=== PATIENT | female | born 1950 | race Caucasian/White ===

== ENCOUNTER 2024-02-23 11:13 | Day surgery (SDC) | payer MEDICARE ==
[2024-02-23] MEDS ORDERED: Sodium Chloride 0.9(Preservative Free) 10 ML IJ ONE (11:14)
[2024-02-23] MEDS ORDERED: Decadron 4 MG INJ IV ONE (11:14)
[2024-02-23] MEDS ORDERED: DIPRIVAN 200 MG/20 ML IV ONE (12:47)
[2024-02-23] MEDS ORDERED: Lactated Ringers 1,000 ML IV ONE (12:52)
--- NOTE | 2024-02-23 14:49 | XRAY ---
Indication: Left L4-S1 transforaminal NKECHI. Intraoperative fluoroscopy was provided for 49 seconds. 5 digital spot image submitted for interpretation demonstrates posterior needle tips projecting over the expected left L4 and L5 nerve roots. Small amount of contrast injected for needle tip placement. Correlate with intraoperative findings/report.
--- NOTE | 2024-02-23 15:13 | XRAY ---
49 seconds of fluoroscopy was used in surgery for a left L4-S1 transforaminal NKECHI.
== END 2024-02-23 13:30 | disposition home or self-care (01) ==
LOC: SDC-PAIN 11:13
PROVIDERS: ATTEND Psychiatry & Neurology Pain Medicine
DX: M54.16 Radiculopathy, lumbar region (principal); E11.9 Type 2 diabetes mellitus without complications
CPT/HCPCS: 64483; 64484; 72100; 77003; 82947; J1100; J2704; Q9966

== ENCOUNTER 2024-05-03 09:18 | Day surgery (SDC) | payer MEDICARE ==
[2024-05-03] MEDS ORDERED: Decadron 4 MG INJ IV ONE (09:19)
[2024-05-03] MEDS ORDERED: Sodium Chloride 0.9(Preservative Free) 10 ML IJ ONE (09:19)
[2024-05-03] MEDS ORDERED: DIPRIVAN 200 MG/20 ML IV ONE (11:13)
[2024-05-03] MEDS ORDERED: MORPHINE SULFATE 2 MG INJ ONE (11:42)
--- NOTE | 2024-05-03 12:21 | XRAY ---
Indication: Left L4-S1 transforaminal NKECHI. Intraoperative fluoroscopy provided for 50 seconds. 7 digital spot image submitted for interpretation demonstrates posterior needle tips projecting over the expected left L4 and L5 nerve roots. Small amount of contrast injected for needle tip placement. Correlate with intraoperative findings/report.
--- NOTE | 2024-05-03 12:35 | XRAY ---
50 seconds of fluoroscopy was used in surgery for a left L4-S1 transforaminal NKECHI.
== END 2024-05-03 12:15 | disposition home or self-care (01) ==
LOC: SDC-PAIN 09:18
PROVIDERS: ATTEND Psychiatry & Neurology Pain Medicine
DX: M54.16 Radiculopathy, lumbar region (principal); E11.9 Type 2 diabetes mellitus without complications
CPT/HCPCS: 64483; 64484; 72100; 77003; 82947; J1100; J2270; J2704; Q9966

== ENCOUNTER 2024-06-26 18:46 | Emergency (ER) | payer MEDICARE ==
--- NOTE | 2024-06-26 18:58 | ERPHSYRPT ---
- History of Present Illness Time Seen by Provider: 06/26/24 18:58 Source: patient, family Exam Limitations: no limitations Physician History: This is a 74-year-old white female patient who arrives to the emergency department by private vehicle and is a patient of Dr. Piper. She stated that she has chest heaviness and shortness of breath today. Patient has a history of atrial fibrillation in the past but has had an ablation last year which is helped control her arrhythmia. Patient is very anxious and tearful upon arrival to the emergency department. Patient does see a pain specialist, Dr. Huertas. Patient has a history of hypertension, diabetes, osteoarthritis and fibromyalgia. Her room air oxygen saturation level is 98%. Timing/Duration: today Severity of Dyspnea-Max: mild Severity of Dyspnea-Current: mild Possible Cause: occasional episodes Modifying Factors: Improves With: nothing Associated Symptoms: chest pain/discomfort (Describes it as central and nonradiating heaviness), heaviness, No weakness, No dizziness Allergies/Adverse Reactions: alprazolam [From Xanax] Allergy (Verified 06/26/24 18:49) meperidine [From Demerol] Allergy (Verified 06/26/24 18:49) Rash shellfish derived Allergy (Verified 06/26/24 18:49) Difficulty Breathing Travel Risk - International Travel Have you traveled outside of the country in past 3 weeks: No - Emerging Infectious Disease Are you exhibiting symptoms associated with any current EIDs: No - Review of Systems Constitutional: No Symptoms Eyes: No Symptoms Ears, Nose, & Throat: No Symptoms Respiratory: Dyspnea Cardiac: No Symptoms Abdominal/Gastrointestinal: No Symptoms Genitourinary Symptoms: No Symptoms Musculoskeletal: No Symptoms Skin: No Symptoms Neurological: No Symptoms Psychological: No Symptoms Endocrine: No Symptoms Hematologic/Lymphatic: No Symptoms Immunological/Allergic: No Symptoms All Other Systems: Reviewed and Negative - Past Medical History Pertinent Past Medical History: Yes Neurological History: No Pertinent History Cardiac History: Arrhythmia, Hypertension Respiratory History: No Pertinent History Endocrine Medical History: Diabetes Type II, Other Musculoskeletal History: Fibromyalgia, Osteoarthritis Other Medical History: PMHX: RIGHT BREAST CA WITH MASTECTOMY (NO CHEMO/RADIATION OR RECONSTRUCTION) 1991, A-FIB WITH ABLATION LAST YEAR WHICH HELPED. HX BILATERAL TOTAL KNEE REPLACEMENTS - LEFT 2 YEARS AGO, RIGHT 4-5 YEARS AGO. HX OF RIGHT ROTATOR CUFF TEAR - STATES WANTS TO DO SURGERY "BUT NOT READY FOR THAT". - Nursing Vital Signs Nursing Vital Signs: Initial Vital Signs Pulse Rate 73 06/26/24 18:49 Respiratory Rate 23 06/26/24 18:49 Blood Pressure 193/78 06/26/24 18:49 O2 Sat by Pulse Oximetry 96 06/26/24 18:49 Pain Scale Pain Intensity 0 - Physical Exam General Appearance: no apparent distress, alert, anxiety Eye Exam: PERRL/EOMI, eyes nml inspection Ears, Nose, Throat Exam: hearing grossly normal, normal ENT inspection, normal pharynx Neck Exam: normal inspection, non-tender, supple, full range of motion Respiratory Exam: normal breath sounds, lungs clear, airway intact, No chest tenderness, No respiratory distress Cardiovascular/Chest Exam: normal heart sounds, regular rate/rhythm Abdominal/Gastrointestinal Exam: soft, normal bowel sounds, No tenderness Rectal Exam: not done Extremity Exam: non-tender, normal range of motion, normal inspection, normal capillary refill, no calf tenderness, no pedal edema, pelvis stable Neurologic Exam: alert, oriented x 3, cooperative, shoe maker II-XII nml as tested, nml cerebellar function, nml station & gait, sensation nml Skin Exam: normal color, warm, dry Lymphatic Exam: No adenopathy SpO2 Interpretation: normal O2 Delivery: Room Air - Course Nursing assessment & vital signs reviewed: Yes EKG Interpreted by Me: RATE (62), Sinus Rhythm, Left [place] Deviation, NORMAL INTERVALS, NORMAL QRS, Other (No acute ischemia on this initial twelve-lead EKG. QTc is 408) Ordered Tests: Active Orders 24 hr Category Date Time Status Service Or Work Dispatcher Chief STAT Care 06/26/24 19:15 Active EKG-ER Only STAT Care 06/26/24 19:14 Active EKG-ER Only STAT Care 06/26/24 22:22 Active IV Insertion STAT Care 06/26/24 19:14 Active Pulse Oximetry (ED) STAT Care 06/26/24 19:14 Active CHEST 1 VIEW (PORTABLE) Stat Exams 06/26/24 19:15 Taken CBC W DIFF Stat Lab 06/26/24 19:00 Completed CMP Stat Lab 06/26/24 19:00 Completed NT PRO BNPII Stat Lab 06/26/24 19:00 Completed TROPONIN Q4H Lab 06/26/24 19:00 Completed TROPONIN Q4H Lab 12/16/24 21:45 Completed TROPONIN Q4H Lab 06/27/24 03:15 Ordered Medication Summary Discontinued Medications Generic Name Dose Route Start Last Admin Trade Name Jeffq PRN Reason Stop Dose Admin Aspirin 324 mg 06/26/24 19:14 06/26/24 19:23 Aspirin 81 Mg Tab.Chew PO 06/26/24 19:15 324 mg STAT ONE Administration Aspirin Confirm 06/26/24 19:22 Aspirin 81 Mg Tab.Chew Administered 06/26/24 19:23 Dose 324 mg .ROUTE .STK-MED ONE Lab/Rad Data: Laboratory Result Diagrams 06/26/24 19:00 06/26/24 19:00 Laboratory Results 06/26/24 06/26/24 06/26/24 Range/Units 21:45 19:00 19:00 WBC (3.98-10.04) x10^3/uL RBC (3.93-5.22) x10^6/uL Hgb (11.2-15.7) g/dL Hct (34.1-44.9) % MCV (79.4-94.8) fL MCH (25.6-32.2) pg MCHC (32.2-35.5) g/dL RDW (11.7-14.4) % Plt Count (182-369) x10^3/uL MPV (9.4-12.3) fL Gran % (34.0-71.1) % Immature Gran % (Auto) (0.001-0.429) % Nucleat RBC Rel Count (0.00-0.2) % Eos # (Auto) (0.04-0.36) x10^3/uL Immature Gran # (Auto) (0.001-0.031) x10^3u/L Absolute Lymphs (auto) (1.18-3.74) x10^3/uL Absolute Monos (auto) (0.24-0.86) x10^3/uL Absolute Nucleated RBC (0.00-0.012) x10^3u/L Lymphocytes % (19.3-51.7) % Monocytes % (4.7-12.5) % Eosinophils % (0.7-5.8) % Basophils % (0.1-1.2) % Absolute Granulocytes (1.56-6.13) x10^3/uL Basophils # (0.01-0.08) x10^3/uL Sodium 129 L (135-145) mmol/L Potassium 4.0 (3.5-5.1) mmol/L Chloride 99 (98-107) mmol/L Carbon Dioxide 18 L (22-30) mmol/L Anion Gap 15.9 H (5-15) MEQ/L BUN 9 (7-17) mg/dL Creatinine 0.61 (0.52-1.04) mg/dL Estimated GFR 93.8 ML/MIN Glucose 95 (74-106) mg/dL Calcium 9.2 (8.4-10.2) mg/dL Total Bilirubin 0.70 (0.2-1.3) mg/dL AST 54 H (14-36) U/L ALT 38 H (0-35) U/L Alkaline Phosphatase 78 (38-126) U/L Troponin I < 0.012 (0.000-0.033) ng/mL NT-Pro-B Natriuret Pep 293 (<300) pg/mL Serum Total Protein 7.1 (6.3-8.2) g/dL Albumin 4.4 (3.5-5.0) g/dL 06/26/24 06/26/24 Range/Units 19:00 19:00 WBC 7.7 (3.98-10.04) x10^3/uL RBC 4.04 (3.93-5.22) x10^6/uL Hgb 12.2 (11.2-15.7) g/dL Hct 36.7 (34.1-44.9) % MCV 90.8 (79.4-94.8) fL MCH 30.2 (25.6-32.2) pg MCHC 33.2 (32.2-35.5) g/dL RDW 13.2 (11.7-14.4) % Plt Count 236 (182-369) x10^3/uL MPV 11.3 (9.4-12.3) fL Gran % 62.7 (34.0-71.1) % Immature Gran % (Auto) 0.4 (0.001-0.429) % Nucleat RBC Rel Count 0.0 (0.00-0.2) % Eos # (Auto) 0.13 (0.04-0.36) x10^3/uL Immature Gran # (Auto) 0.03 (0.001-0.031) x10^3u/L Absolute Lymphs (auto) 1.83 (1.18-3.74) x10^3/uL Absolute Monos (auto) 0.87 H (0.24-0.86) x10^3/uL Absolute Nucleated RBC 0.00 (0.00-0.012) x10^3u/L Lymphocytes % 23.8 (19.3-51.7) % Monocytes % 11.3 (4.7-12.5) % Eosinophils % 1.7 (0.7-5.8) % Basophils % 0.1 (0.1-1.2) % Absolute Granulocytes 4.81 (1.56-6.13) x10^3/uL Basophils # 0.01 (0.01-0.08) x10^3/uL Sodium (135-145) mmol/L Potassium (3.5-5.1) mmol/L Chloride (98-107) mmol/L Carbon Dioxide (22-30) mmol/L Anion Gap (5-15) MEQ/L BUN (7-17) mg/dL Creatinine (0.52-1.04) mg/dL Estimated GFR ML/MIN Glucose (74-106) mg/dL Calcium (8.4-10.2) mg/dL Total Bilirubin (0.2-1.3) mg/dL AST (14-36) U/L ALT (0-35) U/L Alkaline Phosphatase (38-126) U/L Troponin I < 0.012 (0.000-0.033) ng/mL NT-Pro-B Natriuret Pep (<300) pg/mL Serum Total Protein (6.3-8.2) g/dL Albumin (3.5-5.0) g/dL - Progress Progress: improved, re-examined Air Movement: good Progress Note: 06/26/24 20:28 My medical decision making and the assignment of moderate complexity to this patient's medical issue today is based on review of the patient's past medical history, review of the patient's medication list, reviewed patient drug allergy list, history present illness and physical findings on examination. The workup in this patient includes twelve-lead EKG, placement of intravenous line, CBC, CMP, BNP, troponin level, chest x-ray. Differential diagnosis includes but is not limited to arrhythmia, myocardial infarction, CHF, pneumonia 06/26/24 23:34 I interpreted the patient's laboratory data results. Based on the laboratory data results there are no acute, emergent medical issues. The 3-hour troponin is also normal. The preliminary chest x-ray report was interpreted by me. The patient does not have any acute cardiopulmonary process. 06/26/24 23:44 I interpreted the 3-hour twelve-lead EKG. The patient's heart rate is 61 bpm. It is normal sinus rhythm. There is left axis deviation, normal intervals and normal QRS. There is no evidence of any acute ischemia. The patient has no chest pain. Room air oxygen saturation levels 96%. Heart rate is in the 60s. The systolic blood pressure is 170. Her respiratory rate is 16. She is in no distress. The patient will be discharged to home and she is instructed to take her evening blood pressure medication when she arrives at home. She was also instructed to call her primary care provider and food chemist tomorrow, 06/27/2024, to make arrangement for follow-up appointment for further evaluation management. Blood Culture(s) Obtained: No Antibiotics given: No Counseled pt/family regarding: lab results, diagnosis, need for follow-up, rad results Medical Desision Making - Diagnostic Testing Diagnostic test were ordered, analyzed, and reviewed by me: Yes Radiological Interpretation: Interpreted by me, Teleradiologist Report - Risk of complications Low Risk: Low risk of morbidity from additional dx testing or treatment - Departure Departure Disposition: Home Clinical Impression: Nonspecific chest pain, Anxiety about health Condition: Stable Critical Care Time: No Referrals: MARILUZ PIPER MD [Primary Care Provider] - Follow up/PCP as directed Additional Instructions: Drink plenty of fluids. Take your medications as prescribed. Call your primary care provider and food chemist tomorrow, 06/27/2024, to make arrangements for a follow-up of visit to be seen in the next 3 to 5 days. Take your blood pressure medication when you arrive at home this evening
[2024-06-26 19:10] VITALS: TEMP 97.7
[2024-06-26 19:21] LABS: Absolute Neutrophil Ct (ANC) 4.81 x10^3/uL (1.56-6.13); BASOPHIL % 0.1 % (0.1-1.2); Basophil (Absolute #) 0.01 x10^3/uL (0.01-0.08); Eosinophil % 1.7 % (0.7-5.8); Eosinophil (Absolute #) 0.13 x10^3/uL (0.04-0.36); Hematocrit 36.7 % (34.1-44.9); Hemoglobin 12.2 g/dL (11.2-15.7); IMMATURE GRAN # 0.03 x10^3u/L (0.001-0.031); IMMATURE GRAN % 0.4 % (0.001-0.429); Lymphocyte (Absolute #) 1.83 x10^3/uL (1.18-3.74); Lymphocytes % 23.8 % (19.3-51.7); Mean Cell Volume 90.8 fL (79.4-94.8); Mean Corpuscular Hemoglobin 30.2 pg (25.6-32.2); Mean Corpuscular Hgb Concent. 33.2 g/dL (32.2-35.5); Mean Platelet Volume 11.3 fL (9.4-12.3); Monocyte (Absolute #) 0.87 x10^3/uL (0.24-0.86); Monocytes % 11.3 % (4.7-12.5); Neutrophil % 62.7 % (34.0-71.1); Platelet Count 236 x10^3/uL (182-369); Red Blood Count 4.04 x10^6/uL (3.93-5.22); Red Cell Distribution Width 13.2 % (11.7-14.4); White Blood Count 7.7 x10^3/uL (3.98-10.04)
[2024-06-26] MEDS ORDERED: BABY ASPIRIN 81 MG CHEW ONE (19:22)
[2024-06-26] MEDS: BABY ASPIRIN 81 MG CHEW PO ONE (19:23)
[2024-06-26 20:50] LABS: ALBUMIN 4.4 g/dL (3.5-5.0); ANION GAP 15.9 MEQ/L (5-15); BILIRUBIN,TOTAL 0.7 mg/dL (0.2-1.3); Calcium 9.2 mg/dL (8.4-10.2); Creatinine 1 0.61 mg/dL (0.52-1.04); EST GLOMERULAR FILTRATION RATE 93.8 ML/MIN; Total Protein 7.1 g/dL (6.3-8.2)
[2024-06-27 00:13] VITALS: BP 177/95; PULSE 88; RESP 18; O2SAT 97
--- NOTE | 2024-06-27 08:40 | XRAY ---
Indication: Chest heaviness. Short of breath. Comparison: None Portable apical lordotic chest inflated and clear. Heart not enlarged with incidental left dual-lead pacemaker and right hilar calcified nodes. Bony thorax intact with osteopenia, mild degenerative changes, and partial resection distal right clavicle. Impression: Nonacute chest with chronic features.
== END 2024-06-27 00:13 | disposition home or self-care (01) ==
LOC: ED 18:46
DX: R07.89 Other chest pain (principal); R06.02 Shortness of breath; F41.9 Anxiety disorder, unspecified
CPT/HCPCS: 36415; 71045; 80053; 83880; 84484; 85025; 93005; 93041; 94760; 99284; 99285; A9270-GY

== ENCOUNTER 2024-10-26 13:59 | Emergency (ER) | payer MEDICARE ==
[2024-10-26 14:16] VITALS: RESP 18
[2024-10-26] MEDS ORDERED: TYLENOL EXTRA STRENGTH 500 MG ONE (15:05)
[2024-10-26] MEDS: TYLENOL EXTRA STRENGTH 500 MG PO STA (15:06)
--- NOTE | 2024-10-26 15:33 | ERPHSYRPT ---
- History of Present Illness Time Seen by Provider: 10/26/24 14:34 Source: patient, EMS Exam Limitations: no limitations Patient Subjective Stated Complaint: patient was leaving house to go to dr hart with Dr giron and fell face first on the concrete Triage Nursing Assessment: pt is alert andopriented x3, able to communicate , weakened state, patient has visible swelling to left wrist and elbow. no facial wounds no open areas on face, but right hand has some minor scrapes. Physician History: 74-year-old female with history of hypertension, atrial fibrillation status post ablation, diabetes mellitus presented in the ER after she stumbled on her feet and fell forward hitting her chin against the concrete without loss of consciousness. Patient also hit her left wrist and elbow when she tried to stop herself and has some abrasion on the right hand. Has deformity of left wrist. Moderate intensity sharp pain in the wrist and elbow area. Denies any chest pain palpitations or shortness of breath before or after the fall. Denies being dizzy or lightheaded. No numbness tingling or focal weakness. Denies any neck pain although patient is in c-collar. Allergies/Adverse Reactions: alprazolam [From Xanax] Allergy (Verified 06/26/24 18:49) meperidine [From Demerol] Allergy (Verified 06/26/24 18:49) Rash shellfish derived Allergy (Verified 06/26/24 18:49) Difficulty Breathing Hx Tetanus, Diphtheria Vaccination/Date Given: No Hx Influenza Vaccination/Date Given: Yes Hx Pneumococcal Vaccination/Date Given: Yes Travel Risk - International Travel Have you traveled outside of the country in past 3 weeks: No - Emerging Infectious Disease Are you exhibiting symptoms associated with any current EIDs: No Symptoms: Shortness of Breath - Review of Systems Constitutional: No Symptoms Eyes: No Symptoms Ears, Nose, & Throat: No Symptoms Respiratory: No Symptoms Cardiac: No Symptoms Abdominal/Gastrointestinal: No Symptoms Musculoskeletal: Fall, Injury, Joint Pain, Joint Swelling Skin: Skin Lesions Neurological: No Symptoms Endocrine: No Symptoms Hematologic/Lymphatic: No Symptoms - Past Medical History Pertinent Past Medical History: Yes Neurological History: No Pertinent History ENT History: No Pertinent History Cardiac History: Arrhythmia, Hypertension Respiratory History: No Pertinent History Endocrine Medical History: Diabetes Type II, Other Musculoskeletal History: Fibromyalgia, Osteoarthritis GI Medical History: No Pertinent History History: No Pertinent History Psycho-Social History: Anxiety, Depression Female Reproductive Disorders: No Pertinent History Other Medical History: PMHX: RIGHT BREAST CA WITH MASTECTOMY (NO CHEMO/RADIATION OR RECONSTRUCTION) 1991, A-FIB WITH ABLATION LAST YEAR WHICH HELPED. HX BILATERAL TOTAL KNEE REPLACEMENTS - LEFT 2 YEARS AGO, RIGHT 4-5 YEARS AGO. HX OF RIGHT ROTATOR CUFF TEAR - STATES WANTS TO DO SURGERY "BUT NOT READY FOR THAT". - Past Surgical History Past Surgical History: Yes Neuro Surgical History: No Pertinent History Cardiac: Pacemaker Respiratory: No Pertinent History Gastrointestinal: Appendectomy Genitourinary: No Pertinent History Musculoskeletal: Orthopedic Surgery Female Surgical History: Hysterectomy, Mastectomy Other Surgical History: total knee replacement of both knees - Social History Smoking Status: Never smoker Exposure to second hand smoke: No Drug Use: none - Social Determinants of Health Will the patient participate in the screening: Yes Do you worry about a steady place to live?: No Do you have any problems with any of the following?: No known problems In the past 12 months,have you had to go without utilities?: No Transportation Issues: No Has anyone in your support network made you feel unsafe?: No Have you or anyone in your house had to go w/o enough food: No - Nursing Vital Signs Nursing Vital Signs: Initial Vital Signs Temperature 98.2 F 10/26/24 14:00 Pulse Rate 60 10/26/24 14:00 Respiratory Rate 18 10/26/24 14:00 O2 Sat by Pulse Oximetry 98 10/26/24 14:00 Pain Scale Pain Intensity 2 - Clinton Coma Score Best Eye Response (Clinton): (4) open spontaneously Best Verbal Response (Tg): (5) oriented Best Motor Response (Tg): (6) obeys commands [place] Total: 15 - Physical Exam General Appearance: no apparent distress, alert Head Injury: no evidence of injury Eye Exam: PERRL/EOMI, eyes nml inspection ENT Exam: airway nml, No evidence of ENT injury, No dental injury Neck Exam: supple, trachea midline, normal alignment, c-collar in place Respiratory/Chest Exam: normal breath sounds, No chest tenderness Cardiovascular Exam: normal heart sounds Gastrointestinal Exam: soft, normal bowel sounds Back Exam: normal inspection, normal range of motion, No vertebral tenderness Extremity Exam: joint swelling, limited range of motion, bony point tenderness (Left wrist and elbow, mild dorsal deformity of the wrist, distal neurovascular intact. 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, sensation nml, No motor deficits Skin Exam: normal color SpO2 Interpretation: normal SpO2: 98 O2 Delivery: Room Air Ordered Tests: Active Orders 24 hr Category Date Time Status CERVICAL SPINE WO CONTRAST [CT] Stat Exams 10/26/24 14:19 Completed ELBOW (MINIMUM 3 VIEWS) Stat Exams 10/26/24 14:20 Completed FACIAL BONES WO CONTRAST [CT] Stat Exams 10/26/24 14:20 Completed HEAD WITHOUT CONTRAST [CT] Stat Exams 10/26/24 14:17 Completed WRIST (MIN 3 VIEWS) Stat Exams 10/26/24 14:21 Completed Medication Summary Discontinued Medications Generic Name Dose Route Start Last Admin Trade Name Jona PRN Reason Stop Dose Admin Acetaminophen 1,000 mg 10/26/24 14:29 10/26/24 15:06 Acetaminophen 500 Mg Tablet PO 10/26/24 14:30 1,000 mg STAT STA Administration Acetaminophen Confirm 10/26/24 15:05 Acetaminophen 500 Mg Tablet Administered 10/26/24 15:06 Dose 1,000 mg .ROUTE .STK-MED ONE Bupivacaine HCl 10 mg 10/26/24 17:51 10/26/24 17:55 Bupivacaine Hcl/Pf 150 Mg/30 Ml Vial IJ 10/26/24 17:52 Not Given NOW ONE - Progress Progress: improved, pain not gone completely, re-examined Progress Note: 10/26/24 18:04 74-year-old is evaluated in the ER for ground-level mechanical fall where she stumbled on her toes. She was in a c-collar and backboard, per ATLS protocol she was taken off of the board, has no injury otherwise except in the hands and wrist. Has abrasions of the right hand which are thoroughly cleaned and dressed. Has a fracture distal radius with angulation with questionable intra-articular extension reviewed by me followed by official read on the left wrist, left elbow has no fracture dislocation reviewed by me followed by official read. She has intact distal neurovascular, I have shared imaging with Dr. Gtz, recommended hematoma block and reduction while in the ER. I have discussed with patient and daughter and she prefers to follow-up with orthopedics tomorrow and have it done over there. She is placed in a sugar-tong splint/Ortho-Glass by RN with intact distal neurovascular afterwards. CT head cervical spine and facial bones are negative for any acute trauma findings. C-collar is removed and is able to move her neck in all direction without any limitations. She is given symptomatic treatment for pain and is feeling better. Lungs clear to auscultation. No injury anywhere else. Do not think needs any other workup as it was a clear mechanical fall. She would follow-up outpatient with orthopedics tomorrow. Will give her tramadol which she does take at home and is running out. Rec.using cane/walker for ambulation to avoid a fall. Discussed signs symptoms of worsening needing return to ER which patient/family seem understanding. Stable for discharge. Counseled pt/family regarding: diagnosis, need for follow-up, rad results Medical Desision Making - Independent Historian Additional History obtained from: Family, Beam Department Supervisor/EMT - Discussion of managment Care discussed with:: specialist (Dr. Gtz orthopedic surgery) Reviewed:: Test results Agreed on:: Treatment plan, need for follow-up Will see patient: In office - Diagnostic Testing Radiological Interpretation: Interpreted by me, Reviewed by me, Teleradiologist Report - Risk of complications The pt has a mod risk of morbidity or mortality based on: Need for prescription drug management - Departure Departure Disposition: Home Clinical Impression: Wrist fracture, left, Fall, Chin contusion Condition: Stable Critical Care Time: No Referrals: MARILUZ GIRON MD [Primary Care Provider, INTERNAL MEDICINE] - Follow up with PCP 1 day SANDY GTZ MD [ACTIVE STAFF, ORTHOPEDICS] - Follow up/PCP as directed Referral Note: Tomorrow at 1 PM Instructions: Contusion (DC), Forearm and Wrist Fractures ED Additional Instructions: Intermittent ice application. Take Tylenol/tramadol as needed. Use cane/walker for ambulation to avoid a fall. Follow-up with orthopedics for reevaluation tomorrow at 1 PM. Return to ER for intractable pain, numbness weakness, bluish discoloration of the fingers or if having intractable headache, neck pain, intractable vomiting etc. Prescriptions: Tramadol HCl 50 mg [Ultram 50 mg] 50 mg PO Q6HPRN PRN 3 Days #12 tablet PRN Reason: Pain
--- NOTE | 2024-10-26 15:52 | XRAY ---
CLINICAL HISTORY: FAll COMPARISON: No previous studies are available for comparison. TECHNIQUE: A CT scan of the maxillofacial region was performed without the administration of intravenous contrast. Contiguous [specify slice thickness] axial images were obtained from the skull base to the mandible. Coronal and sagittal reformatted images were also reviewed. One of the following dose reduction techniques was utilized for this exam. Automated exposure control, adjustment of the mA and/or kV according to patient size, and use of iterative reconstruction. FINDINGS: Bones: Maxilla: The maxillary bones are intact without evidence of acute fracture, lytic or sclerotic lesions. No signs of maxillary sinus wall fractures. Mandible: The mandibular bone is intact with normal cortices and trabecular patterns. There is no evidence of fracture, osteomyelitis, or neoplastic lesion. Zygomatic Bones: The zygomatic arches are intact bilaterally without evidence of fracture or deformity. Nasal Bones: The nasal bones are intact with no signs of fracture or displacement. Orbital Rucker: The orbital rucker are intact, and there is no evidence of fracture or bony erosion. Orbits: The orbits are normal in size and shape. The globes are symmetric and well-positioned with no evidence of proptosis. The extraocular muscles appear normal in size and symmetry. The optic nerves are normal in caliber and course with no signs of compression or lesion. No retro-orbital masses or abnormal fluid collections are observed. Nasal Cavity and Paranasal Sinuses: Nasal Cavity: The nasal cavity is clear with no evidence of masses, polyps, or septal deviation. Frontal Sinuses: The frontal sinuses are well-pneumatized and free of fluid or soft tissue masses. Ethmoid Sinuses: The ethmoid air cells are clear with no mucosal thickening or fluid levels. Maxillary Sinuses: The maxillary sinuses are well-pneumatized with no fluid levels, mucosal thickening, or masses. Sphenoid Sinuses: The sphenoid sinuses are clear, and no abnormalities were noted. Temporomandibular Joints (TMJ): The TMJs are symmetric and normal in appearance. The mandibular condyles are well-positioned within the glenoid fossae. There are no signs of dislocation, subluxation, or degenerative changes. The articular eminences are normal in contour. Soft Tissues: The soft tissues of the face, including the cheeks, lips, and submandibular regions, appear unremarkable. There are no masses, cysts, or abnormal fluid collections. The parotid and submandibular glands are normal in size and appearance without focal lesions. No mandibular or alveolar margins fractures IMPRESSION: Normal CT scan of the maxillofacial region. No evidence of acute fracture, dislocation, significant soft tissue abnormality, or sinus pathology. RECOMMENDATIONS: No further imaging is required at this time. Clinical correlation is recommended for any persistent symptoms. Electronically Signed by: Soni Murry MD. (10/26/2024 15:47:41 EDT)
--- NOTE | 2024-10-26 16:22 | XRAY ---
CLINICAL HISTORY: Fall COMPARISON: No previous studies are available for comparison. TECHNIQUE: CT scan of the cervical spine was performed without the administration of intravenous contrast. Contiguous axial images were obtained from the skull base to the upper thoracic spine. Coronal and sagittal reformatted images were also reviewed. One of the following dose reduction techniques was utilized for this exam. Automated exposure control, adjustment of the mA and/or kV according to patient size, and use of iterative reconstruction. FINDINGS: Vertebrae: The vertebral bodies are normal in height No evidence of acute fracture or dislocation. Subtle anterolisthesis of C4 over C5 and C5 over C6. The cortical and trabecular bone patterns are normal. No signs of lytic or sclerotic lesions. Normal configuration of the posterior elements. Intervertebral Discs: Narrowed C4-5, C5-6 and C6-7 disc spaces. No calcifications or ossifications noted within the discs. Facet Joints: Multiple bilateral facet arthritis of almost all the cervical levels. Neural Foramina: Limited evaluation of the neural foraminal narrowing as per provided images. Prevertebral Soft Tissues: The prevertebral soft tissues are normal in thickness without evidence of mass or abnormal fluid collection. Additional Findings: Left central line is noted . IMPRESSION: 1. No evidence of acute fracture, dislocation. 2. Mild cervical spondylotic changes. 3. Subtle anterolisthesis of C4 over C5 and C5 over C6. Electronically Signed by: Soni Murry MD. (10/26/2024 16:17:37 EDT)
--- NOTE | 2024-10-26 16:26 | XRAY ---
CLINICAL HISTORY: FAll COMPARISON: No prior studies available for comparison. TECHNIQUE: X-ray images of the left wrist were obtained in anteroposterior (AP), lateral, and oblique projections. FINDINGS: Bone Structure: Distal radius fracture with dorsal angulation and dorsal displacement with intraarticular extension Displaced ulnar styloid fracutre Intramedullary ulnar wire fixation . degenerative changes of the 1st carpometacarpal joint. Joint Spaces: Distal radioulnar joint displacement preserved carpal arches Soft Tissues: Soft tissue swelling noted around the wrist joint. No soft tissue calcifications, or foreign bodies noted. IMPRESSION: 1. Comminuted Distal radius fracture with dorsal angulation and displacement with possible intrarticular extension. 2. Ulnar styloid fracture. Disclaimer: A subtle bone abnormality or fracture may not be readily apparent on X-rays, thus clinical correlation and further imaging including follow-up CT, MRI, or follow-up X-rays are advised as needed. Electronically Signed by: Soni Murry MD. (10/26/2024 16:21:47 EDT)
--- NOTE | 2024-10-26 16:30 | XRAY ---
CLINICAL HISTORY: FAll COMPARISON: No prior studies available for comparison. TECHNIQUE: X-ray images of the left elbow were obtained in anteroposterior (AP), lateral, and oblique projections. FINDINGS: Bone Structure: No evidence of acute fracture or dislocation. No osseous lesions or abnormalities identified. Ulnar fixation medullary wire,, no device break or loosening. Healed fracture of the proximal radius shaft with bone remodelling, and adjacent soft tissue calcification/ossification. Bone structure of the left elbow is normal and well-aligned. Joint Spaces: Joint spaces are preserved. No evidence of joint effusion or subluxation. Articular Surfaces: Articular surfaces are smooth and intact. No signs of osteophyte formation or subchondral sclerosis. IMPRESSION: 1. No evidence of acute fractures, dislocations, or significant degenerative changes. 2. Ulnar shaft fixation with no complications 3. Old healed fracture of the proximal radius. Disclaimer: A subtle bone abnormality or fracture may not be readily apparent on X-rays, thus clinical correlation and further imaging including follow-up CT, MRI, or follow-up X-rays are advised as needed. Electronically Signed by: Soni Murry MD. (10/26/2024 16:25:30 EDT)
--- NOTE | 2024-10-26 16:38 | XRAY ---
CLINICAL HISTORY: Fall COMPARISON: None. TECHNIQUE: Axial non-contrast CT scan of the brain was performed from the skull base to the high parietal region. One of the following dose reduction techniques were utilized for this exam: Automated exposure control, adjustment of the mA and/or kV according to patient size, use of iterative reconstruction. FINDINGS: Brain Parenchyma: No evidence of acute infarct, hemorrhage, or mass effect. Mild prominence of cortical brain sulci, gyri,basal cisterns, and extra-axial CSF spaces with mild dilated ventricular system ? suggesting Age-related brain involutional changes. Accentuated subcortical and deep periventricular white matter hypodensity suggesting chronic small vessel disease. Normal attenuation of the cerebral hemispheres, cerebellum, and brainstem. Focus of fat attenuation(HU -65) noted in the falx cerebri anteriorly, Fatty falx. Subarachnoid Spaces: Normal sulci and cisterns. No evidence of subarachnoid hemorrhage or extra-axial fluid collections. Cerebellum and Brainstem: Normal size and signal. No masses, lesions, or areas of abnormal signal. Orbits: Normal appearance of the globes, optic nerves, and extraocular muscles. No evidence of orbital masses or abnormal signal. Sinuses: Clear paranasal sinuses. No evidence of sinusitis or mucosal thickening. Mastoid Air Cells: Clear mastoid air cells. No evidence of mastoiditis. Skull: Normal skull morphology. Earrings are noted casting metallic artifact partailly obscuring the posterior fossa. IMPRESSION: 1. No intra- or extra-axial hemorrhage. 2. No obvious calvarial fractures. 3. Age-related brain involutional changes. 4. Chronic small vessel disease. Electronically Signed by: Soni Murry MD. (10/26/2024 16:34:35 EDT)
[2024-10-26 16:42] VITALS: PULSE 76; TEMP 97.6
[2024-10-26] MEDS: Marcaine Mpf 0.5% Vial 30 Ml IJ ONE (17:55)
[2024-10-26 18:08] VITALS: O2SAT 98
[2024-10-26] MEDS ORDERED: ULTRAM 50 MG ONE (18:21)
[2024-10-26] MEDS: ULTRAM 50 MG PO ONE (18:26)
== END 2024-10-26 19:03 | disposition home or self-care (01) ==
LOC: ED 13:59
DX: S52.572A Other intraarticular fracture of lower end of left radius, initial encounter for closed fracture (principal); S52.612A Displaced fracture of left ulna styloid process, initial encounter for closed fracture; S00.83XA Contusion of other part of head, initial encounter; W01.0XXA Fall on same level from slipping, tripping and stumbling without subsequent striking against object, initial encounter; M25.522 Pain in left elbow; I10 Essential (primary) hypertension; E11.9 Type 2 diabetes mellitus without complications; Z79.891 Long term (current) use of opiate analgesic
CPT/HCPCS: 29125; 70450; 70486; 72125; 73080; 73110; 99284; A9270-GY

== ENCOUNTER 2025-04-16 14:56 | Observation (INO) | payer MEDICARE ==
--- NOTE | 2025-04-16 15:06 | ERPHSYRPT ---
- History of Present Illness Time Seen by Provider: 04/16/25 15:06 Source: patient Exam Limitations: clinical condition Physician History: Patient presents with general feeling of being unwell. No definite weakness, difficulty swallowing or numbness or tingling. Friends did report that they thought she had a left-sided facial droop. Patient has a history of strokes in the past. No lasting deficits. Patient denies any chest pain, shortness of breath, abdominal pain, swelling. Allergies/Adverse Reactions: alprazolam [From Xanax] Allergy (Verified 04/16/25 15:01) meperidine [From Demerol] Allergy (Verified 04/16/25 15:01) Rash shellfish derived Allergy (Verified 04/16/25 15:01) Difficulty Breathing Home Medications: Clonazepam [Klonopin] 1 mg PO BID 04/16/25 [History] Lisinopril 20 mg [Zestril 20 MG] 20 mg PO DAILY 04/16/25 [History] Metoprolol Tartrate 25 mg [Lopressor 25MG Tab] 25 mg PO DAILY 04/16/25 [History] Olanzapine 5 mg [zyPREXA 5MG TABLET] 5 mg PO HS 04/16/25 [History] Olanzapine 5 mg [zyPREXA 5MG TABLET] 7.5 mg PO HS 04/16/25 [History] buPROPion HCL [Bupropion Xl] 300 mg PO QAM 04/16/25 [History] Hx Tetanus, Diphtheria Vaccination/Date Given: No Hx Influenza Vaccination/Date Given: Yes Hx Pneumococcal Vaccination/Date Given: Yes Travel Risk - Emerging Infectious Disease Are you exhibiting symptoms associated with any current EIDs: No Symptoms: Shortness of Breath - Review of Systems All Other Systems: Reviewed and Negative - Past Medical History Pertinent Past Medical History: Yes Neurological History: No Pertinent History ENT History: Cataracts Cardiac History: Arrhythmia, Hypertension Respiratory History: No Pertinent History Endocrine Medical History: Diabetes Type II, Other Musculoskeletal History: Fibromyalgia, Osteoarthritis GI Medical History: Gallbladder Disease History: No Pertinent History Psycho-Social History: Anxiety, Depression Female Reproductive Disorders: Breast Cancer Other Medical History: PMHX: RIGHT BREAST CA WITH MASTECTOMY (NO CHEMO/RADIATION OR RECONSTRUCTION) 1991, A-FIB WITH ABLATION LAST YEAR WHICH HELPED. HX BILATERAL TOTAL KNEE REPLACEMENTS - LEFT 2 YEARS AGO, RIGHT 4-5 YEARS AGO. HX OF RIGHT ROTATOR CUFF TEAR - STATES WANTS TO DO SURGERY "BUT NOT READY FOR THAT". - Past Surgical History Past Surgical History: Yes Neuro Surgical History: No Pertinent History Cardiac: Pacemaker Respiratory: No Pertinent History Gastrointestinal: Appendectomy, Cholecystectomy Genitourinary: No Pertinent History Musculoskeletal: Orthopedic Surgery Female Surgical History: Hysterectomy, Mastectomy Other Surgical History: total knee replacement of both knees - Social History Smoking Status: Never smoker Exposure to second hand smoke: No Drug Use: none - Social Determinants of Health Will the patient participate in the screening: Yes Do you worry about a steady place to live?: No In the past 12 months,have you had to go without utilities?: No Transportation Issues: No Has anyone in your support network made you feel unsafe?: No Have you or anyone in your house had to go w/o enough food: No - Nursing Vital Signs Nursing Vital Signs: Initial Vital Signs Temperature 97.2 F 04/16/25 14:57 Pulse Rate 60 04/16/25 14:57 Respiratory Rate 14 04/16/25 14:57 Blood Pressure 177/84 04/16/25 14:57 O2 Sat by Pulse Oximetry 96 04/16/25 14:57 Pain Scale Pain Intensity 5 - Physical Exam General Appearance: no apparent distress, obese Eye Exam: PERRL/EOMI Neck Exam: normal inspection, non-tender, supple, full range of motion, No carotid bruit Respiratory Exam: normal breath sounds, lungs clear, airway intact, No respiratory distress Cardiovascular Exam: regular rate/rhythm, normal heart sounds, capillary refill <2 sec, No edema Gastrointestinal/Abdomen Exam: soft, No tenderness, No distention Neurologic Exam: alert, oriented x 3, cooperative, juvenile court judge II-XII nml as tested, normal mood/affect, nml cerebellar function, sensation nml, No motor weakness, No facial droop, No slurred speech Skin Exam: normal color, warm, dry, No rash SpO2 Interpretation: normal O2 Delivery: Room Air - Course Nursing assessment & vital signs reviewed: Yes EKG Interpreted by Me: RATE (60), NORMAL INTERVALS, NORMAL QRS, NORMAL ST-T, Other (atrial paced, no LAD) Ordered Tests: Active Orders 24 hr Category Date Time Status Call Admit Doctor for Orders ON ADMISSION Care 04/16/25 18:28 Active Chicken Vaccinator ROUTINE Care 04/16/25 18:28 Active Code Status Order ROUTINE Care 04/16/25 18:28 Active EKG-ER Only STAT Care 04/16/25 15:06 Completed IV Insertion STAT Care 04/16/25 15:06 Completed NPO (ED) STAT Care 04/16/25 15:06 Completed Neuro Checks Q4H Care 04/16/25 18:[address] in Observation ROUTINE Care 04/16/25 18:28 Active NPO except Meds Diet 04/16/25 18:29 Active HEAD WITHOUT CONTRAST [CT] Stat Exams 04/16/25 15:06 Completed CBC W DIFF Stat Lab 04/16/25 15:50 Completed CMP Stat Lab 04/16/25 15:50 Completed Lactic Acid Stat Lab 04/16/25 15:06 Completed MAGNESIUM Stat Lab 04/16/25 15:50 Completed PROTIME WITH INR Stat Lab 04/16/25 15:50 Completed PTT Stat Lab 04/16/25 15:50 Completed TSH, 3RD Generation Stat Lab 04/16/25 15:50 Completed UA W/RFX UR CULTURE Stat Lab 04/16/25 15:06 Completed VENOUS BLOOD GAS Urgent Lab 04/16/25 15:06 Completed Transfer Order Routine Transfer 04/16/25 Completed Medication Summary Generic Name Dose Route Start Last Admin Trade Name Freq PRN Reason Stop Dose Admin Bupropion HCl 300 mg 04/17/25 10:00 Bupropion Hcl 150 Mg Tablet Xl PO 05/17/25 09:59 QAM JAVIER Lisinopril 20 mg 04/17/25 10:00 Lisinopril 20 Mg Tablet PO 05/17/25 09:59 DAILY JAVIER Metoprolol Tartrate 25 mg 04/17/25 10:00 Metoprolol Tartrate 25 Mg Tab PO 05/17/25 09:59 DAILY JAVIER Olanzapine 5 mg 04/16/25 22:00 Olanzapine 5 Mg Tab PO 05/16/25 21:59 HS JAVIER Olanzapine 7.5 mg 04/16/25 22:00 Olanzapine 5 Mg Tab PO 05/16/25 21:59 HS JAVIER Discontinued Medications Generic Name Dose Route Start Last Admin Trade Name Freq PRN Reason Stop Dose Admin Atorvastatin Calcium 80 mg 04/16/25 16:48 04/16/25 16:58 Atorvastatin Calcium 40 Mg Tablet PO 04/16/25 16:49 80 mg STAT STA Administration Atorvastatin Calcium Confirm 04/16/25 16:57 Atorvastatin Calcium 40 Mg Tablet Administered 04/16/25 16:58 Dose 80 mg .ROUTE .[employer] Clopidogrel Bisulfate 300 mg 04/16/25 16:44 04/16/25 16:58 Clopidogrel Bisulfate 75 Mg Tablet PO 04/16/25 16:45 300 mg STAT ONE Administration Clopidogrel Bisulfate Confirm 04/16/25 16:58 Clopidogrel Bisulfate 75 Mg Tablet Administered 04/16/25 16:59 Dose 300 [facility]/Rad Data: Laboratory Result Diagrams 04/16/25 15:50 04/16/25 15:50 Laboratory Results 04/16/25 04/16/25 04/16/25 Range/Units 15:50 15:50 15:50 WBC (3.98-10.04) x10^3/uL RBC (3.93-5.22) x10^6/uL Hgb (11.2-15.7) g/dL Hct (34.1-44.9) % MCV (79.4-94.8) fL MCH (25.6-32.2) pg MCHC (32.2-35.5) g/dL RDW (11.7-14.4) % Plt Count (182-369) x10^3/uL MPV (9.4-12.3) fL Gran % (34.0-71.1) % Immature Gran % (Auto) (0.001-0.429) % Nucleat RBC Rel Count (0.00-0.2) % Eos # (Auto) (0.04-0.36) x10^3/uL Immature Gran # (Auto) (0.001-0.031) x10^3u/L Absolute Lymphs (auto) (1.18-3.74) x10^3/uL Absolute Monos (auto) (0.24-0.86) x10^3/uL Absolute Nucleated RBC (0.00-0.012) x10^3u/L Lymphocytes % (19.3-51.7) % Monocytes % (4.7-12.5) % Eosinophils % (0.7-5.8) % Basophils % (0.1-1.2) % Absolute Granulocytes (1.56-6.13) x10^3/uL Basophils # (0.01-0.08) x10^3/uL PT (9.4-12.5) SECONDS INR (0.8-3.0) APTT (25.1-36.5) SECONDS pO2/FiO2 Ratio % VBG pH (7.32-7.42) VBG pCO2 at Pat Temp (42-55) mm/Hg VBG pO2 at Pat Temp (25-40) mm/Hg VBG HCO3 (22-28) meq/L VBG O2 Sat (Anaid) (95-100) VBG Base Excess (-2.0-2.0) VBG Hemoglobin VBG Carboxyhemoglobin (0.0-6.9) % T HGB POC Potassium (3.5-5.1) Sodium (135-145) mmol/L Potassium (3.5-5.1) mmol/L Chloride (98-107) mmol/L Carbon Dioxide (22-30) mmol/L Anion Gap (5-15) MEQ/L BUN (7-17) mg/dL Creatinine (0.52-1.04) mg/dL Estimated GFR ML/MIN Glucose (74-106) mg/dL Hemoglobin A1c 6.30 H (4.5-6.0) % Lactic Acid (0.4-2.0) Calcium (8.4-10.2) mg/dL Magnesium (1.6-2.3) mg/dL Total Bilirubin (0.2-1.3) mg/dL AST (14-36) U/L ALT (0-35) U/L Alkaline Phosphatase (38-126) U/L Ammonia < 9 L (9-30) umol/L Serum Total Protein (6.3-8.2) g/dL Albumin (3.5-5.0) g/dL Free T4 1.01 (0.78-2.19) ng/dL TSH 3rd Generation (0.470-4.680) mIU/L Urine Color (Yellow) Urine Appearance (Clear) Urine pH (4.6-8.0) Ur Specific Orient (1.005-1.030) Urine Protein (Negative) Urine Glucose (UA) (Negative) mg/dL Urine Ketones (Negative) Urine Blood (Negative) Urine Nitrite (Negative) Urine Bilirubin (Negative) Urine Urobilinogen (0.2) mg/dL Ur Leukocyte Esterase (Negative) U Hyaline Cast (Auto) (0-2) /LPF Urine Microscopic RBC (0-5) /HPF Urine Microscopic WBC (0-5) /HPF Ur Epithelial Cells (None Seen) /HPF Urine Bacteria (None Seen) /HPF Urine Culture Reflexed (NO) 04/16/25 04/16/25 04/16/25 Range/Units 15:50 15:50 15:50 WBC 5.5 (3.98-10.04) x10^3/uL RBC 4.51 (3.93-5.22) x10^6/uL Hgb 13.1 (11.2-15.7) g/dL Hct 41.7 (34.1-44.9) % MCV 92.5 (79.4-94.8) fL MCH 29.0 (25.6-32.2) pg MCHC 31.4 L (32.2-35.5) g/dL RDW 12.8 (11.7-14.4) % Plt Count 226 (182-369) x10^3/uL MPV 11.0 (9.4-12.3) fL Gran % 53.9 (34.0-71.1) % Immature Gran % (Auto) 0.5 H (0.001-0.429) % Nucleat RBC Rel Count 0.0 (0.00-0.2) % Eos # (Auto) 0.17 (0.04-0.36) x10^3/uL Immature Gran # (Auto) 0.03 (0.001-0.031) x10^3u/L Absolute Lymphs (auto) 1.80 (1.18-3.74) x10^3/uL Absolute Monos (auto) 0.48 (0.24-0.86) x10^3/uL Absolute Nucleated RBC 0.00 (0.00-0.012) x10^3u/L Lymphocytes % 33.0 (19.3-51.7) % Monocytes % 8.8 (4.7-12.5) % Eosinophils % 3.1 (0.7-5.8) % Basophils % 0.7 (0.1-1.2) % Absolute Granulocytes 2.94 (1.56-6.13) x10^3/uL Basophils # 0.04 (0.01-0.08) x10^3/uL PT 10.3 (9.4-12.5) SECONDS INR 0.92 (0.8-3.0) APTT 24.0 L (25.1-36.5) SECONDS pO2/FiO2 Ratio % VBG pH (7.32-7.42) VBG pCO2 at Pat Temp (42-55) mm/Hg VBG pO2 at Pat Temp (25-40) mm/Hg VBG HCO3 (22-28) meq/L VBG O2 Sat (Anaid) (95-100) VBG Base Excess (-2.0-2.0) VBG Hemoglobin VBG Carboxyhemoglobin (0.0-6.9) % T HGB POC Potassium (3.5-5.1) Sodium 138 (135-145) mmol/L Potassium 4.5 (3.5-5.1) mmol/L Chloride 101 (98-107) mmol/L Carbon Dioxide 31 H (22-30) mmol/L Anion Gap 9.8 (5-15) MEQ/L BUN 9 (7-17) mg/dL Creatinine 0.51 L (0.52-1.04) mg/dL Estimated GFR 97.9 ML/MIN Glucose 107 H (74-106) mg/dL Hemoglobin A1c (4.5-6.0) % Lactic Acid (0.4-2.0) Calcium 9.1 (8.4-10.2) mg/dL Magnesium 1.8 (1.6-2.3) mg/dL Total Bilirubin 0.20 (0.2-1.3) mg/dL AST 27 (14-36) U/L ALT 17 (0-35) U/L Alkaline Phosphatase 85 (38-126) U/L Ammonia (9-30) umol/L Serum Total Protein 6.6 (6.3-8.2) g/dL Albumin 4.0 (3.5-5.0) g/dL Free T4 (0.78-2.19) ng/dL TSH 3rd Generation 0.901 (0.470-4.680) mIU/L Urine Color (Yellow) Urine Appearance (Clear) Urine pH (4.6-8.0) Ur Specific Orient (1.005-1.030) Urine Protein (Negative) Urine Glucose (UA) (Negative) mg/dL Urine Ketones (Negative) Urine Blood (Negative) Urine Nitrite (Negative) Urine Bilirubin (Negative) Urine Urobilinogen (0.2) mg/dL Ur Leukocyte Esterase (Negative) U Hyaline Cast (Auto) (0-2) /LPF Urine Microscopic RBC (0-5) /HPF Urine Microscopic WBC (0-5) /HPF Ur Epithelial Cells (None Seen) /HPF Urine Bacteria (None Seen) /HPF Urine Culture Reflexed (NO) 04/16/25 04/16/25 04/16/25 Range/Units 15:06 15:06 15:06 WBC (3.98-10.04) x10^3/uL RBC (3.93-5.22) x10^6/uL Hgb (11.2-15.7) g/dL Hct (34.1-44.9) % MCV (79.4-94.8) fL MCH (25.6-32.2) pg MCHC (32.2-35.5) g/dL RDW (11.7-14.4) % Plt Count (182-369) x10^3/uL MPV (9.4-12.3) fL Gran % (34.0-71.1) % Immature Gran % (Auto) (0.001-0.429) % Nucleat RBC Rel Count (0.00-0.2) % Eos # (Auto) (0.04-0.36) x10^3/uL Immature Gran # (Auto) (0.001-0.031) x10^3u/L Absolute Lymphs (auto) (1.18-3.74) x10^3/uL Absolute Monos (auto) (0.24-0.86) x10^3/uL Absolute Nucleated RBC (0.00-0.012) x10^3u/L Lymphocytes % (19.3-51.7) % Monocytes % (4.7-12.5) % Eosinophils % (0.7-5.8) % Basophils % (0.1-1.2) % Absolute Granulocytes (1.56-6.13) x10^3/uL Basophils # (0.01-0.08) x10^3/uL PT (9.4-12.5) SECONDS INR (0.8-3.0) APTT (25.1-36.5) SECONDS pO2/FiO2 Ratio 21.0 % VBG pH 7.44 H (7.32-7.42) VBG pCO2 at Pat Temp 56 H (42-55) mm/Hg VBG pO2 at Pat Temp 33 (25-40) mm/Hg VBG HCO3 38.0 H* (22-28) meq/L VBG O2 Sat (Anaid) 51.3 L (95-100) VBG Base Excess 11.6 H (-2.0-2.0) VBG Hemoglobin 13.5 VBG Carboxyhemoglobin 2.5 (0.0-6.9) % T HGB POC Potassium 4.6 (3.5-5.1) Sodium (135-145) mmol/L Potassium (3.5-5.1) mmol/L Chloride (98-107) mmol/L Carbon Dioxide (22-30) mmol/L Anion Gap (5-15) MEQ/L BUN (7-17) mg/dL Creatinine (0.52-1.04) mg/dL Estimated GFR ML/MIN Glucose (74-106) mg/dL Hemoglobin A1c (4.5-6.0) % Lactic Acid 1.3 (0.4-2.0) Calcium (8.4-10.2) mg/dL Magnesium (1.6-2.3) mg/dL Total Bilirubin (0.2-1.3) mg/dL AST (14-36) U/L ALT (0-35) U/L Alkaline Phosphatase (38-126) U/L Ammonia (9-30) umol/L Serum Total Protein (6.3-8.2) g/dL Albumin (3.5-5.0) g/dL Free T4 (0.78-2.19) ng/dL TSH 3rd Generation (0.470-4.680) mIU/L Urine Color Yellow (Yellow) Urine Appearance Clear (Clear) Urine pH 7.0 (4.6-8.0) Ur Specific Orient 1.010 (1.005-1.030) Urine Protein Negative (Negative) Urine Glucose (UA) Negative (Negative) mg/dL Urine Ketones Negative (Negative) Urine Blood Negative (Negative) Urine Nitrite Negative (Negative) Urine Bilirubin Negative (Negative) Urine Urobilinogen 0.2 (0.2) mg/dL Ur Leukocyte Esterase Trace A (Negative) U Hyaline Cast (Auto) NONE SEEN (0-2) /LPF Urine Microscopic RBC 0-2 (0-5) /HPF Urine Microscopic WBC 0-2 (0-5) /HPF Ur Epithelial Cells None Seen (None Seen) /HPF Urine Bacteria None Seen (None Seen) /HPF Urine Culture Reflexed NO (NO) - Progress Progress: improved Progress Note: 04/16/25 15:34 Stroke workup initiated due to reported history of slurred speech. NIH 0 on exam. 04/16/25 16:47 CT head neg. Labs unremarkable. CTA head and neck ordered, but patient has a severe shellfish allergy. I discussed admission for MRA head/neck with hospitalist (Dr. Israel) who accepted at 1645. Started on plavix and statin. Discussed with Dr.: Annamarie Counseled pt/family regarding: lab results, diagnosis, need for follow-up Medical Desision Making - Diagnostic Testing Diagnostic test were ordered, analyzed, and reviewed by me: Yes Radiological Interpretation: Interpreted by me, Reviewed by me, Teleradiologist Report - Risk of complications The pt has a high risk of morbidity or mortality based on: Decision regarding hospitilization or escalation of hosp level of care - Departure Departure Disposition: Observation Clinical Impression: TIA (transient ischemic attack) Condition: Stable Critical Care Time: No
[2025-04-16 15:52] LABS: BASOPHIL % 0.7 % (0.1-1.2); Basophil (Absolute #) 0.04 x10^3/uL (0.01-0.08); Eosinophil (Absolute #) 0.17 x10^3/uL (0.04-0.36); Hematocrit 41.7 % (34.1-44.9); Hemoglobin 13.1 g/dL (11.2-15.7); IMMATURE GRAN # 0.03 x10^3u/L (0.001-0.031); IMMATURE GRAN % 0.5 % (0.001-0.429); Lymphocyte (Absolute #) 1.80 x10^3/uL (1.18-3.74); Mean Corpuscular Hemoglobin 29.0 pg (25.6-32.2); Mean Corpuscular Hgb Concent. 31.4 g/dL (32.2-35.5); Monocyte (Absolute #) 0.48 x10^3/uL (0.24-0.86); NUCLEATED RBC # 0.00 x10^3u/L (0.00-0.012); NUCLEATED RBC % 0.0 % (0.00-0.2); Platelet Count 226 x10^3/uL (182-369); Red Blood Count 4.51 x10^6/uL (3.93-5.22); White Blood Count 5.5 x10^3/uL (3.98-10.04)
[2025-04-16 15:55] LABS: VBG BASE EXCESS 11.6 (-2.0-2.0); VBG CARBOXYHEMOGLOBIN 2.5 % T HGB (0.0-6.9); VBG FIO2 21.0 %; VBG HCO3- 38.0 meq/L (22-28); VBG HEMOGLOBIN 13.5; VBG O2 SATURATION 51.3 (95-100); VBG PCO2 56.0 mm/Hg (42-55); VBG PO2 33.0 mm/Hg (25-40); VBG POTASSIUM 4.6 (3.5-5.1)
--- NOTE | 2025-04-16 16:07 | XRAY ---
Indication: Confusion. Multiple axial images obtained through the head without contrast. Comparison: October 26, 2024 Again age-appropriate global atrophy and mild periventricular degenerative micro-ischemia unchanged. No acute intracranial hemorrhage, abnormal extra-axial fluid collection, or mass effect. Fourth ventricle is midline without hydrocephalus. Bony calvarium intact. Visualized paranasal sinuses and mastoid air cells are clear. Impression: Stable nonacute senile brain.
[2025-04-16 16:09] LABS: INR 0.92 (0.8-3.0); PROTIME 10.3 SECONDS (9.4-12.5); PTT 24.0 SECONDS (25.1-36.5)
[2025-04-16 16:37] LABS: Calcium 9.1 mg/dL (8.4-10.2); Carbon Dioxide 31.0 mmol/L (22-30); Creatinine 1 0.51 mg/dL (0.52-1.04); EST GLOMERULAR FILTRATION RATE 97.9 ML/MIN; Glucose 107.0 mg/dL (74-106); Potassium 4.5 mmol/L (3.5-5.1); SGOT/AST 27.0 U/L (14-36); SGPT/ALT 17.0 U/L (0-35); Total Protein 6.6 g/dL (6.3-8.2)
[2025-04-16] MEDS ORDERED: LIPITOR 40MG ONE (16:57)
[2025-04-16] MEDS: PLAVIX Tablet PO ONE (16:58)
[2025-04-16] MEDS: LIPITOR 40MG PO STA (16:58)
[2025-04-16] MEDS ORDERED: PLAVIX Tablet ONE (16:58)
[2025-04-16 17:47] LABS: Glucose, Urine Negative (Negative); Protein,Urine Dip Negative (Negative); RBC 0-2 /HPF (0-5); WBC 0-2 /HPF (0-5)
[2025-04-16 18:32] LABS: Cholesterol 173.0 mg/dL (50-200); LDL, DIRECT 77.0 mg/dL (30-100); TRIGLYCERIDE 202.0 mg/dL (30-150)
--- NOTE | 2025-04-16 19:40 | PCM.CONS ---
History of Present Illness - Neuro Consultation ED Arrival Date & Time: 04/16/25 14:56 Providers: Attending Provider: JYOTI CARRINGTON MD ED Provider: DIANN COUCH MD Consulting Provider: GLENN AG DO cc:: The requesting physician will be sent a copy of the consult. - History of Present Illness HPI: Physician Signature This document was electronically signed by: Glenn Ag DO 04/16/2025 07:37 PM Consult Cover Page ACCESS TELECARE - Teleneurology Consult Note Call Back Number: [phone] Date and Time of Report: 04/16/2025 07:37 PM ET Consult Information Client Facility: [facility] Facility Consult ID: [id number] Facility Time Zone: ET Date and Time of Request: 04-16-2025 06:52 PM ET Requesting Clinician: Malena Rivera NP Patient Name: jono sadler Date of : 1950 Teleneurology Historic Interpreter: Glenn Ag DO Miscellaneous Patient identity was confirmed at the beginning of the consult with the patient/ family/staff using two personal identifiers: Patient name and This visit was performed using real-time audio and video connection between my location and the patient's location with the assistance of a surrogate at the patient's location. Verbal consent was obtained from the patient/family to perform this visit using synchronous telemedicine technology. Any questions regarding the telemedicine interaction were answered. If written or oral consent could not be obtained due to the patient's condition, consent was assumed given the emergent nature of the consultation. I have obtained verbal consent from patient/surrogate for two-way audio/visual encounter: Yes Reason for Consult Reason for Consult: Other Emergency Assessment and Recommendations Case discussed with: Dr. Carrington Assessment: left face droop and slurred speech now resolved, unsure duration. BP peak 189/87. has palpitations, SOB, chest discomfort at end of my encounter, vital signs stable. chart review states has hx of AFib s/p ablation. if confirmed recurrence of AFib on ECG/telemetry, highly recommend she needs to stop aspirin/plavix and start eliquis. if cannot confirm recurrence, risk vs benefits of starting eliquis should be discussed with patient as she is high risk for redeveloping AFib which may be related to her TIA and even current sx of SOB/palpiations/chest discomfort. Recommendations: -MRI brain without contrast - head and neck vessel imaging (MRA due to shellfish allergy) -TTE with bubble study -lipid profile, a1c, TSH -ECG/telemetry -bedside swallow eval, and if passes: -tentative plan: aspirin 81mg daily; plavix 75mg daily for 21 days then stop plavix - stop antiplatelets and switch to eliquis or other anticoagulation as indicated as listed above in assessment regarding AFib hx. -high intensity statin (atorvastatin 80mg daily) -Permissive BP control <220/<120 mmHg until 24hours from LKW, then lower 15% every 24 hours thereafter until 72 hours, then normalize BP. If MRI obtained while in permissive BP window and shows no stroke, can safely normalize BP at that time. - LDL goal <70 in DM. a1c goal <7.0% in DM - physical, occupational, speech therapy - SOB/palpitations/chest discomfort workup/management per primary team Diagnosis: TIA ICD-10 Code ICD-10 Code (Primary): G45.9 : Transient cerebral ischemic attack, unspecified ICD-10 Code: E11.9 : Type 2 diabetes mellitus without complications ICD-10 Code: I10 : Essential (primary) hypertension ICD-10 Code: I48.91 : Unspecified atrial fibrillation ICD-10 Code: R00.2 : Palpitations ICD-10 Code: R06.02 : Shortness of breath ICD-10 Code: R07.9 : Chest pain, unspecified ICD-10 Code: R29.700 : NIHSS score 0 ICD-10 Code: R29.810 : Facial weakness ICD-10 Code: R47.81 : Slurred speech Clinical Evaluation Chief Complaint: slurring, left face droop Patient Location and Admission Status: Inpatient Family Members and Medical Staff Present: RN History of Present Illness: This telemedicine evaluation was performed using a real-time, 2-way, audio and video connection and written or verbal consent was obtained from the patient/surrogate. 2 identifiers name and date of used. right-handed. MedHx: see below roommate told her she was slurring and maybe left face was drooping maybe around 2pm. she did not feel these sx. she woke up this morning at baseline, and feels baseline now but is unsure when she recovered. she feels somewhat fuzzy. arm and legs unaffected. denies stroke hx. takes aspirin 325mg daily. has questionable parkinson's disease, not on any PD meds. reports smoking cigarettes from time to time. she denied cardiac comorbidities to me but chart review stated hx of AFib s/p ablation last year Neurologist and patient are in same time zone, documented as local (eastern) time. Camera date/time: 1901 Imaging read time: 1914 IVT decision/time: 1902 Medical History Other Medical History: HTN, HLD, DM, breast cancer s/p resection 1990 in remission, parkinson's disease?, AFib s/p ablation Social History Alcohol Use: None Illicit Drug Use: None Tobacco Use: Past Family History Pertinent Family History: Not Relevant to Current Presentation Allergies Other Allergies: alprazolam, meperidine, shellfish Medications Anti-Coagulants: None Anti-Platelets: asa 325mg Other Medications: venlafaxine, clonazepam, olanzapine, metoprolol, lisinopril Vital Signs Temperature F: 97.9 Temperature C: 36.6 Blood Pressure (mmHg): 135/51 Heart Rate (bpm): 65 O2 Sat (%): 96 Date and Time: 04/16/2025 07:18:18 PM ET Review of Systems Review of Systems: Constitutional: Denies fevers, chills, weight loss ENT: Denies tinnitus Ophthalmology: Denies diplopia, blurred vision, vision loss Respiratory: Denies SOB, cough Cardiovascular: Denies chest pains, palpitations GI: Denies nausea, vomiting : Denies hematuria Hematology: Denies excessive bleeding Musculoskeletal: Denies back pain, neck pain, joint pain Neurology: above Mental Health: Denies anxiety Dermatology: Denies rash NIH Stroke Scale NIH Stroke Scale Score: 0 1. Level of Consciousness: 0 : alert; keenly responsive. 1a. LOC Questions: 0 : Answers both questions correctly. 1b. LOC Commands: 0 : Performs both tasks correctly. 2. Best Gaze: 0 : Normal. 3. Visual: 0 : No visual loss. 4. Facial Palsy: 0 : Normal symmetrical movements. 5a. Motor Left Arm: 0 : No drift; limb holds 90 (or 45) degrees for full 10 seconds. 5b. Motor Right Arm : 0 : No drift; limb holds 90 (or 45) degrees for full 10 seconds. 6a. Motor Left Le : No drift; leg holds 30-degree position for full 5 seconds. 6b. Motor Right Le : No drift; leg holds 30-degree position for full 5 seconds. 7. Limb Ataxia: 0 : Absent. 8. Sensory: 0 : Normal; no sensory loss. 9. Best Language: 0 : No aphasia; normal. 10. Dysarthria: 0 : Normal. 11. Extinction and inattention (formerly Neglect) : 0 : No abnormality. NIH Stroke Scale Entry Time: 04/16/2025 07:20:30 PM ET Exam Exam: Gen: Well developed, well nourished. No acute distress. MS: Awake and oriented x3. Alert. Fund of knowledge, memory, and language at baseline. CV: Regular rate. No edema. taker away: Pupils equal., EOMI. Visual galicia are full. Unable to visualize fundi through telemedicine. Sensation intact. Face is symmetric. Hearing intact to voice. Trapezii strong. Tongue midline. Motor: Antigravity in all 4 extremities. Normal bulk. Sens: Intact to light touch in all 4 extremities. MSR: Unable to assess through telemedicine, no clonus noted. Mvmt: bilateral postural tremors of hands. ANDRES/FTN intact. Gait: Deferred. at end of encounter, she began complaining of shortness of breath, chest discom fort, and palpitations. Vitals obtained, recorded above. Clinician assisting with exam: RN Labs and Imaging I reviewed labs: Yes I reviewed diagnostic reports such as radiological imaging, echocardiogram, and EEG reports: Yes I reviewed diagnostics such as radiological images and electroencephalograms: Yes Labs and Imaging Comments: personal CTH no acute. LDL 77 a1c 6.3%. glucose 103 Inclusion Criteria Symptoms suggestive of ischemic stroke that are deemed disabling: No Able to initiate treatment within 4.5 hours of time last known well: No Age 18 years or older: Yes Exclusion Criteria Acute intracranial hemorrhage (ICH): No History of ICH other than history of cerebral microbleeds: No Unable to maintain BP <185/110 despite aggressive antihypertensive treatment: No Acute internal bleeding: No Severe head trauma within last 3 months: No Arterial puncture at non-compressible site within 7 days: No Infective endocarditis: No Gastrointestinal bleeding within last 21 days or structural GI malignancy: No Intracranial or spinal surgery within last 3 months: No Thrombocytopenia: platelet count <100 000/mm3: No INR > 1.7, PT > 15 or PTT > 40: No Low-Molecular Weight Heparin within preceding 24 hours: No Direct Thrombin Inhibitors or Factor Xa Inhibitors within preceding 48 hours: No Thrombolysis Recommendation Thrombolysis recommended?: No Reason Thrombolysis not recommended: Stroke severity too mild (non-disabling) Reason Thrombolysis not recommended Comments: sx resolved Attestation Interaction Mode: Video Only Time of Video Call : 04-16-2025 07:02 PM ET Hopper Timer Summary Date and Time of Request: 04-16-2025 06:52 PM ET Review of Systems - Review of Systems Review of Systems (Narrative): Pertinent positive and negative findings as per HPI. All other systems negative. - Past Medical History Past Medical History: Yes Neurological History: No Pertinent History ENT History: Cataracts Cardiac History: Arrhythmia, Hypertension Respiratory History: No Pertinent History Endocrine Medical History: Diabetes Type II, Other Musculoskelatal History: Fibromyalgia, Osteoarthritis GI Medical History: Gallbladder Disease History: No Pertinent History Pyscho-Social History: Anxiety, Depression Reproductive Disorders: Breast Cancer Comment: PMHX: RIGHT BREAST CA WITH MASTECTOMY (NO CHEMO/RADIATION OR RECONSTRUCTION) 1991, A-FIB WITH ABLATION LAST YEAR WHICH HELPED. HX BILATERAL TOTAL KNEE REPLACEMENTS - LEFT 2 YEARS AGO, RIGHT 4-5 YEARS AGO. HX OF RIGHT ROTATOR CUFF TEAR - STATES WANTS TO DO SURGERY "BUT NOT READY FOR THAT". - Past Surgical History Past Surgical History: Yes Neuro Surgical History: No Pertinent History Cardiac History: Pacemaker Respiratory Surgery: No Pertinent History GI Surgical History: Appendectomy, Cholecystectomy Genitourinary Surgical Hx: No Pertinent History Musculskeletal Surgical Hx: Orthopedic Surgery Female Surgical History: Hysterectomy, Mastectomy Other Surgical History: total knee replacement of both knees - Social History Smoking Status: Never smoker Exposure to second hand smoke: No Alcohol: None Drug Use: none - Social Determinants of Health Will the patient participate in the screening: Yes Do you worry about a steady place to live?: No Do you have any problems with any of the following?: No known problems In the past 12 months,have you had to go without utilities?: No Have you or anyone in your house had to go without enough: No Transportation Issues: No Has anyone in your support network made you feel unsafe?: No Does the patient want assistance with any of the above?: No Comment: patient worries about finances Physical Exam - Vital Signs Vital Signs: Vital Signs - 24 hr 04/16/25 04/16/25 04/16/25 14:57 15:00 15:27 Temperature 97.2 F Pulse Rate 60 Respiratory 14 Rate Blood Pressure 177/84 Blood Pressure 177/84 [Left Arm] O2 Sat by Pulse 96 95 94 L Oximetry 04/16/25 04/16/25 04/16/25 15:30 15:40 15:47 Temperature Pulse Rate 77 Respiratory 15 Rate Blood Pressure Blood Pressure [Left Arm] O2 Sat by Pulse 95 96 96 Oximetry 04/16/25 04/16/25 04/16/25 15:48 15:57 16:00 Temperature Pulse Rate 60 60 60 Respiratory 16 16 17 Rate Blood Pressure 191/90 178/78 Blood Pressure 161/72 [Left Arm] O2 Sat by Pulse 96 98 95 Oximetry 04/16/25 04/16/25 04/16/25 16:31 18:22 19:06 Temperature 97.9 F Pulse Rate 60 68 68 Respiratory 8 L 16 Rate Blood Pressure 161/72 Blood Pressure 189/87 [Left Arm] O2 Sat by Pulse 95 97 Oximetry Results - Labs Lab/Micro Results: Lab Results-Last 24 Hours 04/16/25 04/16/25 04/16/25 Range/Units 15:06 15:06 15:06 WBC (3.98-10.04) x10^3/uL RBC (3.93-5.22) x10^6/uL Hgb (11.2-15.7) g/dL Hct (34.1-44.9) % MCV (79.4-94.8) fL MCH (25.6-32.2) pg MCHC (32.2-35.5) g/dL RDW (11.7-14.4) % Plt Count (182-369) x10^3/uL MPV (9.4-12.3) fL Gran % (34.0-71.1) % Immature Gran % (Auto) (0.001-0.429) % Nucleat RBC Rel Count (0.00-0.2) % Eos # (Auto) (0.04-0.36) x10^3/uL Immature Gran # (Auto) (0.001-0.031) x10^3u/L Absolute Lymphs (auto) (1.18-3.74) x10^3/uL Absolute Monos (auto) (0.24-0.86) x10^3/uL Absolute Nucleated RBC (0.00-0.012) x10^3u/L Lymphocytes % (19.3-51.7) % Monocytes % (4.7-12.5) % Eosinophils % (0.7-5.8) % Basophils % (0.1-1.2) % Absolute Granulocytes (1.56-6.13) x10^3/uL Basophils # (0.01-0.08) x10^3/uL PT (9.4-12.5) SECONDS INR (0.8-3.0) APTT (25.1-36.5) SECONDS pO2/FiO2 Ratio 21.0 % VBG pH 7.44 H (7.32-7.42) VBG pCO2 at Pat Temp 56 H (42-55) mm/Hg VBG pO2 at Pat Temp 33 (25-40) mm/Hg VBG HCO3 38.0 H* (22-28) meq/L VBG O2 Sat (Anaid) 51.3 L (95-100) VBG Base Excess 11.6 H (-2.0-2.0) VBG Hemoglobin 13.5 VBG Carboxyhemoglobin 2.5 (0.0-6.9) % T HGB POC Potassium 4.6 (3.5-5.1) Sodium (135-145) mmol/L Potassium (3.5-5.1) mmol/L Chloride (98-107) mmol/L Carbon Dioxide (22-30) mmol/L Anion Gap (5-15) MEQ/L BUN (7-17) mg/dL Creatinine (0.52-1.04) mg/dL Estimated GFR ML/MIN Glucose (74-106) mg/dL Hemoglobin A1c (4.5-6.0) % Lactic Acid 1.3 (0.4-2.0) Calcium (8.4-10.2) mg/dL Magnesium (1.6-2.3) mg/dL Total Bilirubin (0.2-1.3) mg/dL AST (14-36) U/L ALT (0-35) U/L Alkaline Phosphatase (38-126) U/L Ammonia (9-30) umol/L Serum Total Protein (6.3-8.2) g/dL Albumin (3.5-5.0) g/dL Triglycerides (30-150) mg/dL Cholesterol (50-200) mg/dL LDL Cholesterol (30-100) mg/dL HDL Cholesterol (40-60) mg/dL Heart Disease Risk Ratio Free T4 (0.78-2.19) ng/dL TSH 3rd Generation (0.470-4.680) mIU/L Urine Color Yellow (Yellow) Urine Appearance Clear (Clear) Urine pH 7.0 (4.6-8.0) Ur Specific [place] 1.010 (1.005-1.030) Urine Protein Negative (Negative) Urine Glucose (UA) Negative (Negative) mg/dL Urine Ketones Negative (Negative) Urine Blood Negative (Negative) Urine Nitrite Negative (Negative) Urine Bilirubin Negative (Negative) Urine Urobilinogen 0.2 (0.2) mg/dL Ur Leukocyte Esterase Trace A (Negative) U Hyaline Cast (Auto) NONE SEEN (0-2) /LPF Urine Microscopic RBC 0-2 (0-5) /HPF Urine Microscopic WBC 0-2 (0-5) /HPF Ur Epithelial Cells None Seen (None Seen) /HPF Urine Bacteria None Seen (None Seen) /HPF Urine Culture Reflexed NO (NO) 04/16/25 04/16/25 04/16/25 Range/Units 15:50 15:50 15:50 WBC 5.5 (3.98-10.04) x10^3/uL RBC 4.51 (3.93-5.22) x10^6/uL Hgb 13.1 (11.2-15.7) g/dL Hct 41.7 (34.1-44.9) % MCV 92.5 (79.4-94.8) fL MCH 29.0 (25.6-32.2) pg MCHC 31.4 L (32.2-35.5) g/dL RDW 12.8 (11.7-14.4) % Plt Count 226 (182-369) x10^3/uL MPV 11.0 (9.4-12.3) fL Gran % 53.9 (34.0-71.1) % Immature Gran % (Auto) 0.5 H (0.001-0.429) % Nucleat RBC Rel Count 0.0 (0.00-0.2) % Eos # (Auto) 0.17 (0.04-0.36) x10^3/uL Immature Gran # (Auto) 0.03 (0.001-0.031) x10^3u/L Absolute Lymphs (auto) 1.80 (1.18-3.74) x10^3/uL Absolute Monos (auto) 0.48 (0.24-0.86) x10^3/uL Absolute Nucleated RBC 0.00 (0.00-0.012) x10^3u/L Lymphocytes % 33.0 (19.3-51.7) % Monocytes % 8.8 (4.7-12.5) % Eosinophils % 3.1 (0.7-5.8) % Basophils % 0.7 (0.1-1.2) % Absolute Granulocytes 2.94 (1.56-6.13) x10^3/uL Basophils # 0.04 (0.01-0.08) x10^3/uL PT 10.3 (9.4-12.5) SECONDS INR 0.92 (0.8-3.0) APTT 24.0 L (25.1-36.5) SECONDS pO2/FiO2 Ratio % VBG pH (7.32-7.42) VBG pCO2 at Pat Temp (42-55) mm/Hg VBG pO2 at Pat Temp (25-40) mm/Hg VBG HCO3 (22-28) meq/L VBG O2 Sat (Anaid) (95-100) VBG Base Excess (-2.0-2.0) VBG Hemoglobin VBG Carboxyhemoglobin (0.0-6.9) % T HGB POC Potassium (3.5-5.1) Sodium 138 (135-145) mmol/L Potassium 4.5 (3.5-5.1) mmol/L Chloride 101 (98-107) mmol/L Carbon Dioxide 31 H (22-30) mmol/L Anion Gap 9.8 (5-15) MEQ/L BUN 9 (7-17) mg/dL Creatinine 0.51 L (0.52-1.04) mg/dL Estimated GFR 97.9 ML/MIN Glucose 107 H (74-106) mg/dL Hemoglobin A1c (4.5-6.0) % Lactic Acid (0.4-2.0) Calcium 9.1 (8.4-10.2) mg/dL Magnesium 1.8 (1.6-2.3) mg/dL Total Bilirubin 0.20 (0.2-1.3) mg/dL AST 27 (14-36) U/L ALT 17 (0-35) U/L Alkaline Phosphatase 85 (38-126) U/L Ammonia (9-30) umol/L Serum Total Protein 6.6 (6.3-8.2) g/dL Albumin 4.0 (3.5-5.0) g/dL Triglycerides (30-150) mg/dL Cholesterol (50-200) mg/dL LDL Cholesterol (30-100) mg/dL HDL Cholesterol (40-60) mg/dL Heart Disease Risk Ratio Free T4 (0.78-2.19) ng/dL TSH 3rd Generation 0.901 (0.470-4.680) mIU/L Urine Color (Yellow) Urine Appearance (Clear) Urine pH (4.6-8.0) Ur Specific [place] (1.005-1.030) Urine Protein (Negative) Urine Glucose (UA) (Negative) mg/dL Urine Ketones (Negative) Urine Blood (Negative) Urine Nitrite (Negative) Urine Bilirubin (Negative) Urine Urobilinogen (0.2) mg/dL Ur Leukocyte Esterase (Negative) U Hyaline Cast (Auto) (0-2) /LPF Urine Microscopic RBC (0-5) /HPF Urine Microscopic WBC (0-5) /HPF Ur Epithelial Cells (None Seen) /HPF Urine Bacteria (None Seen) /HPF Urine Culture Reflexed (NO) 04/16/25 04/16/25 04/16/25 Range/Units 15:50 15:50 15:50 WBC (3.98-10.04) x10^3/uL RBC (3.93-5.22) x10^6/uL Hgb (11.2-15.7) g/dL Hct (34.1-44.9) % MCV (79.4-94.8) fL MCH (25.6-32.2) pg MCHC (32.2-35.5) g/dL RDW (11.7-14.4) % Plt Count (182-369) x10^3/uL MPV (9.4-12.3) fL Gran % (34.0-71.1) % Immature Gran % (Auto) (0.001-0.429) % Nucleat RBC Rel Count (0.00-0.2) % Eos # (Auto) (0.04-0.36) x10^3/uL Immature Gran # (Auto) (0.001-0.031) x10^3u/L Absolute Lymphs (auto) (1.18-3.74) x10^3/uL Absolute Monos (auto) (0.24-0.86) x10^3/uL Absolute Nucleated RBC (0.00-0.012) x10^3u/L Lymphocytes % (19.3-51.7) % Monocytes % (4.7-12.5) % Eosinophils % (0.7-5.8) % Basophils % (0.1-1.2) % Absolute Granulocytes (1.56-6.13) x10^3/uL Basophils # (0.01-0.08) x10^3/uL PT (9.4-12.5) SECONDS INR (0.8-3.0) APTT (25.1-36.5) SECONDS pO2/FiO2 Ratio % VBG pH (7.32-7.42) VBG pCO2 at Pat Temp (42-55) mm/Hg VBG pO2 at Pat Temp (25-40) mm/Hg VBG HCO3 (22-28) meq/L VBG O2 Sat (Anaid) (95-100) VBG Base Excess (-2.0-2.0) VBG Hemoglobin VBG Carboxyhemoglobin (0.0-6.9) % T HGB POC Potassium (3.5-5.1) Sodium (135-145) mmol/L Potassium (3.5-5.1) mmol/L Chloride (98-107) mmol/L Carbon Dioxide (22-30) mmol/L Anion Gap (5-15) MEQ/L BUN (7-17) mg/dL Creatinine (0.52-1.04) mg/dL Estimated GFR ML/MIN Glucose (74-106) mg/dL Hemoglobin A1c 6.30 H (4.5-6.0) % Lactic Acid (0.4-2.0) Calcium (8.4-10.2) mg/dL Magnesium (1.6-2.3) mg/dL Total Bilirubin (0.2-1.3) mg/dL AST (14-36) U/L ALT (0-35) U/L Alkaline Phosphatase (38-126) U/L Ammonia < 9 L (9-30) umol/L Serum Total Protein (6.3-8.2) g/dL Albumin (3.5-5.0) g/dL Triglycerides (30-150) mg/dL Cholesterol (50-200) mg/dL LDL Cholesterol (30-100) mg/dL HDL Cholesterol (40-60) mg/dL Heart Disease Risk Ratio Free T4 1.01 (0.78-2.19) ng/dL TSH 3rd Generation (0.470-4.680) mIU/L Urine Color (Yellow) Urine Appearance (Clear) Urine pH (4.6-8.0) Ur Specific [place] (1.005-1.030) Urine Protein (Negative) Urine Glucose (UA) (Negative) mg/dL Urine Ketones (Negative) Urine Blood (Negative) Urine Nitrite (Negative) Urine Bilirubin (Negative) Urine Urobilinogen (0.2) mg/dL Ur Leukocyte Esterase (Negative) U Hyaline Cast (Auto) (0-2) /LPF Urine Microscopic RBC (0-5) /HPF Urine Microscopic WBC (0-5) /HPF Ur Epithelial Cells (None Seen) /HPF Urine Bacteria (None Seen) /HPF Urine Culture Reflexed (NO) 04/16/25 Range/Units 17:47 WBC (3.98-10.04) x10^3/uL RBC (3.93-5.22) x10^6/uL Hgb (11.2-15.7) g/dL Hct (34.1-44.9) % MCV (79.4-94.8) fL MCH (25.6-32.2) pg MCHC (32.2-35.5) g/dL RDW (11.7-14.4) % Plt Count (182-369) x10^3/uL MPV (9.4-12.3) fL Gran % (34.0-71.1) % Immature Gran % (Auto) (0.001-0.429) % Nucleat RBC Rel Count (0.00-0.2) % Eos # (Auto) (0.04-0.36) x10^3/uL Immature Gran # (Auto) (0.001-0.031) x10^3u/L Absolute Lymphs (auto) (1.18-3.74) x10^3/uL Absolute Monos (auto) (0.24-0.86) x10^3/uL Absolute Nucleated RBC (0.00-0.012) x10^3u/L Lymphocytes % (19.3-51.7) % Monocytes % (4.7-12.5) % Eosinophils % (0.7-5.8) % Basophils % (0.1-1.2) % Absolute Granulocytes (1.56-6.13) x10^3/uL Basophils # (0.01-0.08) x10^3/uL PT (9.4-12.5) SECONDS INR (0.8-3.0) APTT (25.1-36.5) SECONDS pO2/FiO2 Ratio % VBG pH (7.32-7.42) VBG pCO2 at Pat Temp (42-55) mm/Hg VBG pO2 at Pat Temp (25-40) mm/Hg VBG HCO3 (22-28) meq/L VBG O2 Sat ([place]aid) (95-100) VBG Base Excess (-2.0-2.0) VBG Hemoglobin VBG Carboxyhemoglobin (0.0-6.9) % T HGB POC Potassium (3.5-5.1) Sodium (135-145) mmol/L Potassium (3.5-5.1) mmol/L Chloride (98-107) mmol/L Carbon Dioxide (22-30) mmol/L Anion Gap (5-15) MEQ/L BUN (7-17) mg/dL Creatinine (0.52-1.04) mg/dL Estimated GFR ML/MIN Glucose (74-106) mg/dL Hemoglobin A1c (4.5-6.0) % Lactic Acid (0.4-2.0) Calcium (8.4-10.2) mg/dL Magnesium (1.6-2.3) mg/dL Total Bilirubin (0.2-1.3) mg/dL AST (14-36) U/L ALT (0-35) U/L Alkaline Phosphatase (38-126) U/L Ammonia (9-30) umol/L Serum Total Protein (6.3-8.2) g/dL Albumin (3.5-5.0) g/dL Triglycerides 202 H (30-150) mg/dL Cholesterol 173 (50-200) mg/dL LDL Cholesterol 77 (30-100) mg/dL HDL Cholesterol 57 (40-60) mg/dL Heart Disease Risk Ratio 3.0 Free T4 (0.78-2.19) ng/dL TSH 3rd Generation (0.470-4.680) mIU/L Urine Color (Yellow) Urine Appearance (Clear) Urine pH (4.6-8.0) Ur Specific [place] (1.005-1.030) Urine Protein (Negative) Urine Glucose (UA) (Negative) mg/dL Urine Ketones (Negative) Urine Blood (Negative) Urine Nitrite (Negative) Urine Bilirubin (Negative) Urine Urobilinogen (0.2) mg/dL Ur Leukocyte Esterase (Negative) U Hyaline Cast (Auto) (0-2) /LPF Urine Microscopic RBC (0-5) /HPF Urine Microscopic WBC (0-5) /HPF Ur Epithelial Cells (None Seen) /HPF Urine Bacteria (None Seen) /HPF Urine Culture Reflexed (NO) - Radiology Orders Radiology Orders: Radiology Procedures Category Date Time Status HEAD WITHOUT CONTRAST [CT] Stat Exams 04/16/25 15:06 Completed MRI BRAIN W/O CONTRAST [MRI] Routine Exams 04/17/25 08:00 Ordered MRI BRAIN W/O CONTRAST [MRI] Routine Exams 04/17/25 08:00 Stop Req Impressions & Recommendations - ED Arrival Time ED Arrival Date & Time: ED Arrival Date and Time 04/16/25 14:56 Last known well time: - NIHSS IV Thrombolysis Standard of Care: IV thrombolysis as a standard of care in acute stroke discussed with DIANN COUCH MD. Risk, benefits, and options of IV thrombolytic therapy for acute ischemic stroke were discussed with the patient/family JONO SADLER. We discussed that use of IV tenecteplase is in line with national stroke guidelines. We discussed that risks of IV thrombolytic use include intracranial hemorrhage, other fatal bleeding risks, and angioedema. Alternatives of treatment, including not proceeding with thrombolytic therapy were discussed. - Recommendations Recommendations: -Neuro checks, NIHSS, vital signs monitoring as per post tenecteplase protocol -Repeat non contrast head CT or noncontrast MRI brain 24 hours after IV thrombolyltic administration. -Obtain STAT non contrast head CT if there are new neurological deficits, worsening of current deficits, or with complaint of severe headache. Notify Neurology RAHEEM of changes in neurological exam. -Nicardipine gtt as needed to maintain BP< 180/105 x 24hr post tenecteplase administration. -Monitor for angioedema -SCD's for DVT prophylaxis. Work up: -Basic labs (CBC, BMP, TSH+T4) if not done already. -INR,PTT if not done already -Fasting Lipid Panel and Hgb A1c -Transthroacic echocardiogram [with bubble study] -EKG + Telemetry- monitor for A-FIB Secondary Stroke Prevention -Hold off on antiplatelet therapy x 24 hr post IV thrombolytic therapy Decision to initiate antiplatelet therapy, or anticoagulation if needed, will be based on repeat imaging at 24 hour post thrombolytic administration. -If not medical contraindication, start high intensity statin. Eg. Atrovastatin 80 mg daily Risk Factor Management -HTN control: BP <180/105 for first 24 hr post tenecteplase -If diabetic, optimize glucose control: correction goal HgA1c <7 -HLD control: Long-term goal LDL <70. High intensity statin recommended. Moderate intensity statin in patients > 75 years. -Smoking Alcohol Use Drug use cessation counseling Stroke Rehabilitation: -Physical therapy, occupational therapy, speech therapy consults -Social work and case management consults for help with discharge needs. Impression and recommendation were discussed with Dr. DIANN COUCH MD Thank you for allowing us to participate in this patient's care. Please call [facility] with questions, concerns, or change in patient's neurological status. This consult was performed via secure telemedicine audio/visual platform with [ ] RN assisting at bedside. Patient identity verified and consent obtained. TIQ recieved at [ ] Neuro Cart Time: Delays in Patient Encounter: Assessment & Plan - Encounter Encounter: "The entirety of this encounter was performed via Telemedicine using audio and visual "
--- NOTE | 2025-04-16 20:09 | PCM.HP ---
History of Present Illness - Chief Complaint Chief Complaint: TIA Date: 04/16/25 History of Present Illness: is a 74-year-old female with a past medical history significant for atrial fibrillation, prior stroke, hypertension, obesity, type II diabetes mellitus, fibromyalgia, osteoarthritis, anxiety, and depression presented to the emergency department with a general feeling of being unwell. She denied any focal weakness, numbness, tingling, dysphagia, chest pain, shortness of breath, or abdominal pain. Friends accompanying the patient reported a possible left- sided facial droop earlier in the day, which has since resolved. The patient has a known history of cerebrovascular accidents but without residual deficits. On evaluation, she appeared at her neurological baseline with resolution of symptoms. Vital signs were stable, and physical examination revealed no acute deficits. Neurology was consulted for further evaluation and recommendations. - Review of Systems Constitutional: No Fever, No Chills Eyes: No Symptoms Ears, Nose, & Throat: No Symptoms Respiratory: No Cough, No Short Of Breath Cardiac: No Chest Pain, No Edema, No Syncope Abdominal/Gastrointestinal: No Abdominal Pain, No Nausea, No Vomiting, No Diarrhea Genitourinary Symptoms: No Dysuria Musculoskeletal: No Back Pain, No Neck Pain Skin: No Rash Neurological: No Dizziness, No Focal Weakness, No Sensory Changes Psychological: No Symptoms Endocrine: No Symptoms Hematologic/Lymphatic: No Symptoms Immunological/Allergic: No Symptoms Medications & Allergies Home Medications: Home Medication List Clonazepam [Klonopin] 1 mg PO BID 04/16/25 [History Confirmed 04/16/25] Lisinopril 20 mg [Zestril 20 MG] 20 mg PO DAILY 04/16/25 [History Confirmed 04/16/25] Metoprolol Tartrate 25 mg [Lopressor 25MG Tab] 25 mg PO DAILY 04/16/25 [History Confirmed 04/16/25] Olanzapine 5 mg [zyPREXA 5MG TABLET] 5 mg PO HS 04/16/25 [History Confirmed 04/16/25] Olanzapine 5 mg [zyPREXA 5MG TABLET] 7.5 mg PO HS 04/16/25 [History Confirmed 04/16/25] Venlafaxine HCl ER 75 mg [Effexor XR 75 MG] 225 mg PO DAILY 04/16/25 [History Confirmed 04/16/25] buPROPion HCL [Bupropion Xl] 300 mg PO QAM 04/16/25 [History Confirmed 04/16/25] Allergies/Adverse Reactions: Allergies Allergy/AdvReac Type Severity Reaction Status Date / Time alprazolam [From Xanax] Allergy Verified 04/16/25 15:01 meperidine [From Demerol] Allergy Rash Verified 04/16/25 15:01 shellfish derived Allergy Difficulty Verified 04/16/25 15:01 Breathing - Past Medical History Past Medical History: Yes Neurological History: No Pertinent History ENT History: Cataracts Cardiac History: Arrhythmia, Hypertension Respiratory History: No Pertinent History Endocrine Medical History: Diabetes Type II, Other Musculoskelatal History: Fibromyalgia, Osteoarthritis GI Medical History: Gallbladder Disease History: No Pertinent History Pyscho-Social History: Anxiety, Depression Reproductive Disorders: Breast Cancer Comment: PMHX: RIGHT BREAST CA WITH MASTECTOMY (NO CHEMO/RADIATION OR RECONSTRUCTION) 1991, A-FIB WITH ABLATION LAST YEAR WHICH HELPED. HX BILATERAL TOTAL KNEE REPLACEMENTS - LEFT 2 YEARS AGO, RIGHT 4-5 YEARS AGO. HX OF RIGHT ROTATOR CUFF TEAR - STATES WANTS TO DO SURGERY "BUT NOT READY FOR THAT". - Past Surgical History Past Surgical History: Yes Neuro Surgical History: No Pertinent History Cardiac History: Pacemaker Respiratory Surgery: No Pertinent History GI Surgical History: Appendectomy, Cholecystectomy Genitourinary Surgical Hx: No Pertinent History Musculskeletal Surgical Hx: Orthopedic Surgery Female Surgical History: Hysterectomy, Mastectomy Other Surgical History: total knee replacement of both knees Significant Family History: cancer, diabetes, hypertension, stroke - Social History Smoking Status: Never smoker Exposure to second hand smoke: No Alcohol: None Drug Use: none - Social Determinants of Health Will the patient participate in the screening: Yes Do you worry about a steady place to live?: No Do you have any problems with any of the following?: No known problems In the past 12 months,have you had to go without utilities?: No Have you or anyone in your house had to go without enough: No Transportation Issues: No Has anyone in your support network made you feel unsafe?: No Does the patient want assistance with any of the above?: No Comment: patient worries about finances - Physical Exam Vital Signs: Vital Signs - 24 hr Temp Pulse Resp BP BP Pulse Ox 04/16/25 19:06 68 04/16/25 18:22 97.9 F 68 16 189/87 97 04/16/25 16:31 60 8 L 161/72 95 04/16/25 16:00 60 17 178/78 95 04/16/25 15:57 60 16 161/72 98 04/16/25 15:48 60 16 191/90 96 04/16/25 15:47 77 15 96 04/16/25 15:40 96 04/16/25 15:30 95 04/16/25 15:27 94 L 04/16/25 15:00 177/84 95 04/16/25 14:57 97.2 F 60 14 177/84 96 General Appearance: no apparent distress, alert, obese Neurologic Exam: alert, oriented x 3, cooperative, normal mood/affect, nml cerebellar function, nml station & gait, sensation nml, No motor deficits Eye Exam: PERRL/EOMI, eyes nml inspection Ears, Nose, Throat Exam: normal ENT inspection, TMs normal, pharynx normal, moist mucous membranes Neck Exam: normal inspection, non-tender, supple, full range of motion Respiratory Exam: normal breath sounds, lungs clear, No respiratory distress Cardiovascular Exam: regular rate/rhythm, normal heart sounds, normal peripheral pulses Gastrointestinal/Abdomen Exam: soft, normal bowel sounds, No tenderness, No mass Back Exam: normal inspection, normal range of motion, No CVA tenderness, No vertebral tenderness Extremity Exam: normal inspection, normal range of motion, pelvis stable Skin Exam: normal color, warm, dry, No rash Lymphatic Exam: No adenopathy Results - Labs Lab/Micro Results: Lab Results-Last 24 Hours 04/16/25 04/16/25 04/16/25 Range/Units 15:06 15:06 15:06 WBC (3.98-10.04) x10^3/uL RBC (3.93-5.22) x10^6/uL Hgb (11.2-15.7) g/dL Hct (34.1-44.9) % MCV (79.4-94.8) fL MCH (25.6-32.2) pg MCHC (32.2-35.5) g/dL RDW (11.7-14.4) % Plt Count (182-369) x10^3/uL MPV (9.4-12.3) fL Gran % (34.0-71.1) % Immature Gran % (Auto) (0.001-0.429) % Nucleat RBC Rel Count (0.00-0.2) % Eos # (Auto) (0.04-0.36) x10^3/uL Immature Gran # (Auto) (0.001-0.031) x10^3u/L Absolute Lymphs (auto) (1.18-3.74) x10^3/uL Absolute Monos (auto) (0.24-0.86) x10^3/uL Absolute Nucleated RBC (0.00-0.012) x10^3u/L Lymphocytes % (19.3-51.7) % Monocytes % (4.7-12.5) % Eosinophils % (0.7-5.8) % Basophils % (0.1-1.2) % Absolute Granulocytes (1.56-6.13) x10^3/uL Basophils # (0.01-0.08) x10^3/uL PT (9.4-12.5) SECONDS INR (0.8-3.0) APTT (25.1-36.5) SECONDS pO2/FiO2 Ratio 21.0 % VBG pH 7.44 H (7.32-7.42) VBG pCO2 at Pat Temp 56 H (42-55) mm/Hg VBG pO2 at Pat Temp 33 (25-40) mm/Hg VBG HCO3 38.0 H* (22-28) meq/L VBG O2 Sat (Anaid) 51.3 L (95-100) VBG Base Excess 11.6 H (-2.0-2.0) VBG Hemoglobin 13.5 VBG Carboxyhemoglobin 2.5 (0.0-6.9) % T HGB POC Potassium 4.6 (3.5-5.1) Sodium (135-145) mmol/L Potassium (3.5-5.1) mmol/L Chloride (98-107) mmol/L Carbon Dioxide (22-30) mmol/L Anion Gap (5-15) MEQ/L BUN (7-17) mg/dL Creatinine (0.52-1.04) mg/dL Estimated GFR ML/MIN Glucose (74-106) mg/dL Hemoglobin A1c (4.5-6.0) % Lactic Acid 1.3 (0.4-2.0) Calcium (8.4-10.2) mg/dL Magnesium (1.6-2.3) mg/dL Total Bilirubin (0.2-1.3) mg/dL AST (14-36) U/L ALT (0-35) U/L Alkaline Phosphatase (38-126) U/L Ammonia (9-30) umol/L Serum Total Protein (6.3-8.2) g/dL Albumin (3.5-5.0) g/dL Triglycerides (30-150) mg/dL Cholesterol (50-200) mg/dL LDL Cholesterol (30-100) mg/dL HDL Cholesterol (40-60) mg/dL Heart Disease Risk Ratio Free T4 (0.78-2.19) ng/dL TSH 3rd Generation (0.470-4.680) mIU/L Urine Color Yellow (Yellow) Urine Appearance Clear (Clear) Urine pH 7.0 (4.6-8.0) Ur Specific Weir 1.010 (1.005-1.030) Urine Protein Negative (Negative) Urine Glucose (UA) Negative (Negative) mg/dL Urine Ketones Negative (Negative) Urine Blood Negative (Negative) Urine Nitrite Negative (Negative) Urine Bilirubin Negative (Negative) Urine Urobilinogen 0.2 (0.2) mg/dL Ur Leukocyte Esterase Trace A (Negative) U Hyaline Cast (Auto) NONE SEEN (0-2) /LPF Urine Microscopic RBC 0-2 (0-5) /HPF Urine Microscopic WBC 0-2 (0-5) /HPF Ur Epithelial Cells None Seen (None Seen) /HPF Urine Bacteria None Seen (None Seen) /HPF Urine Culture Reflexed NO (NO) 04/16/25 04/16/25 04/16/25 Range/Units 15:50 15:50 15:50 WBC 5.5 (3.98-10.04) x10^3/uL RBC 4.51 (3.93-5.22) x10^6/uL Hgb 13.1 (11.2-15.7) g/dL Hct 41.7 (34.1-44.9) % MCV 92.5 (79.4-94.8) fL MCH 29.0 (25.6-32.2) pg MCHC 31.4 L (32.2-35.5) g/dL RDW 12.8 (11.7-14.4) % Plt Count 226 (182-369) x10^3/uL MPV 11.0 (9.4-12.3) fL Gran % 53.9 (34.0-71.1) % Immature Gran % (Auto) 0.5 H (0.001-0.429) % Nucleat RBC Rel Count 0.0 (0.00-0.2) % Eos # (Auto) 0.17 (0.04-0.36) x10^3/uL Immature Gran # (Auto) 0.03 (0.001-0.031) x10^3u/L Absolute Lymphs (auto) 1.80 (1.18-3.74) x10^3/uL Absolute Monos (auto) 0.48 (0.24-0.86) x10^3/uL Absolute Nucleated RBC 0.00 (0.00-0.012) x10^3u/L Lymphocytes % 33.0 (19.3-51.7) % Monocytes % 8.8 (4.7-12.5) % Eosinophils % 3.1 (0.7-5.8) % Basophils % 0.7 (0.1-1.2) % Absolute Granulocytes 2.94 (1.56-6.13) x10^3/uL Basophils # 0.04 (0.01-0.08) x10^3/uL PT 10.3 (9.4-12.5) SECONDS INR 0.92 (0.8-3.0) APTT 24.0 L (25.1-36.5) SECONDS pO2/FiO2 Ratio % VBG pH (7.32-7.42) VBG pCO2 at Pat Temp (42-55) mm/Hg VBG pO2 at Pat Temp (25-40) mm/Hg VBG HCO3 (22-28) meq/L VBG O2 Sat (Anaid) (95-100) VBG Base Excess (-2.0-2.0) VBG Hemoglobin VBG Carboxyhemoglobin (0.0-6.9) % T HGB POC Potassium (3.5-5.1) Sodium 138 (135-145) mmol/L Potassium 4.5 (3.5-5.1) mmol/L Chloride 101 (98-107) mmol/L Carbon Dioxide 31 H (22-30) mmol/L Anion Gap 9.8 (5-15) MEQ/L BUN 9 (7-17) mg/dL Creatinine 0.51 L (0.52-1.04) mg/dL Estimated GFR 97.9 ML/MIN Glucose 107 H (74-106) mg/dL Hemoglobin A1c (4.5-6.0) % Lactic Acid (0.4-2.0) Calcium 9.1 (8.4-10.2) mg/dL Magnesium 1.8 (1.6-2.3) mg/dL Total Bilirubin 0.20 (0.2-1.3) mg/dL AST 27 (14-36) U/L ALT 17 (0-35) U/L Alkaline Phosphatase 85 (38-126) U/L Ammonia (9-30) umol/L Serum Total Protein 6.6 (6.3-8.2) g/dL Albumin 4.0 (3.5-5.0) g/dL Triglycerides (30-150) mg/dL Cholesterol (50-200) mg/dL LDL Cholesterol (30-100) mg/dL HDL Cholesterol (40-60) mg/dL Heart Disease Risk Ratio Free T4 (0.78-2.19) ng/dL TSH 3rd Generation 0.901 (0.470-4.680) mIU/L Urine Color (Yellow) Urine Appearance (Clear) Urine pH (4.6-8.0) Ur Specific Weir (1.005-1.030) Urine Protein (Negative) Urine Glucose (UA) (Negative) mg/dL Urine Ketones (Negative) Urine Blood (Negative) Urine Nitrite (Negative) Urine Bilirubin (Negative) Urine Urobilinogen (0.2) mg/dL Ur Leukocyte Esterase (Negative) U Hyaline Cast (Auto) (0-2) /LPF Urine Microscopic RBC (0-5) /HPF Urine Microscopic WBC (0-5) /HPF Ur Epithelial Cells (None Seen) /HPF Urine Bacteria (None Seen) /HPF Urine Culture Reflexed (NO) 04/16/25 04/16/25 04/16/25 Range/Units 15:50 15:50 15:50 WBC (3.98-10.04) x10^3/uL RBC (3.93-5.22) x10^6/uL Hgb (11.2-15.7) g/dL Hct (34.1-44.9) % MCV (79.4-94.8) fL MCH (25.6-32.2) pg MCHC (32.2-35.5) g/dL RDW (11.7-14.4) % Plt Count (182-369) x10^3/uL MPV (9.4-12.3) fL Gran % (34.0-71.1) % Immature Gran % (Auto) (0.001-0.429) % Nucleat RBC Rel Count (0.00-0.2) % Eos # (Auto) (0.04-0.36) x10^3/uL Immature Gran # (Auto) (0.001-0.031) x10^3u/L Absolute Lymphs (auto) (1.18-3.74) x10^3/uL Absolute Monos (auto) (0.24-0.86) x10^3/uL Absolute Nucleated RBC (0.00-0.012) x10^3u/L Lymphocytes % (19.3-51.7) % Monocytes % (4.7-12.5) % Eosinophils % (0.7-5.8) % Basophils % (0.1-1.2) % Absolute Granulocytes (1.56-6.13) x10^3/uL Basophils # (0.01-0.08) x10^3/uL PT (9.4-12.5) SECONDS INR (0.8-3.0) APTT (25.1-36.5) SECONDS pO2/FiO2 Ratio % VBG pH (7.32-7.42) VBG pCO2 at Pat Temp (42-55) mm/Hg VBG pO2 at Pat Temp (25-40) mm/Hg VBG HCO3 (22-28) meq/L VBG O2 Sat (Anaid) (95-100) VBG Base Excess (-2.0-2.0) VBG Hemoglobin VBG Carboxyhemoglobin (0.0-6.9) % T HGB POC Potassium (3.5-5.1) Sodium (135-145) mmol/L Potassium (3.5-5.1) mmol/L Chloride (98-107) mmol/L Carbon Dioxide (22-30) mmol/L Anion Gap (5-15) MEQ/L BUN (7-17) mg/dL Creatinine (0.52-1.04) mg/dL Estimated GFR ML/MIN Glucose (74-106) mg/dL Hemoglobin A1c 6.30 H (4.5-6.0) % Lactic Acid (0.4-2.0) Calcium (8.4-10.2) mg/dL Magnesium (1.6-2.3) mg/dL Total Bilirubin (0.2-1.3) mg/dL AST (14-36) U/L ALT (0-35) U/L Alkaline Phosphatase (38-126) U/L Ammonia < 9 L (9-30) umol/L Serum Total Protein (6.3-8.2) g/dL Albumin (3.5-5.0) g/dL Triglycerides (30-150) mg/dL Cholesterol (50-200) mg/dL LDL Cholesterol (30-100) mg/dL HDL Cholesterol (40-60) mg/dL Heart Disease Risk Ratio Free T4 1.01 (0.78-2.19) ng/dL TSH 3rd Generation (0.470-4.680) mIU/L Urine Color (Yellow) Urine Appearance (Clear) Urine pH (4.6-8.0) Ur Specific Weir (1.005-1.030) Urine Protein (Negative) Urine Glucose (UA) (Negative) mg/dL Urine Ketones (Negative) Urine Blood (Negative) Urine Nitrite (Negative) Urine Bilirubin (Negative) Urine Urobilinogen (0.2) mg/dL Ur Leukocyte Esterase (Negative) U Hyaline Cast (Auto) (0-2) /LPF Urine Microscopic RBC (0-5) /HPF Urine Microscopic WBC (0-5) /HPF Ur Epithelial Cells (None Seen) /HPF Urine Bacteria (None Seen) /HPF Urine Culture Reflexed (NO) 04/16/25 Range/Units 17:47 WBC (3.98-10.04) x10^3/uL RBC (3.93-5.22) x10^6/uL Hgb (11.2-15.7) g/dL Hct (34.1-44.9) % MCV (79.4-94.8) fL MCH (25.6-32.2) pg MCHC (32.2-35.5) g/dL RDW (11.7-14.4) % Plt Count (182-369) x10^3/uL MPV (9.4-12.3) fL Gran % (34.0-71.1) % Immature Gran % (Auto) (0.001-0.429) % Nucleat RBC Rel Count (0.00-0.2) % Eos # (Auto) (0.04-0.36) x10^3/uL Immature Gran # (Auto) (0.001-0.031) x10^3u/L Absolute Lymphs (auto) (1.18-3.74) x10^3/uL Absolute Monos (auto) (0.24-0.86) x10^3/uL Absolute Nucleated RBC (0.00-0.012) x10^3u/L Lymphocytes % (19.3-51.7) % Monocytes % (4.7-12.5) % Eosinophils % (0.7-5.8) % Basophils % (0.1-1.2) % Absolute Granulocytes (1.56-6.13) x10^3/uL Basophils # (0.01-0.08) x10^3/uL PT (9.4-12.5) SECONDS INR (0.8-3.0) APTT (25.1-36.5) SECONDS pO2/FiO2 Ratio % VBG pH (7.32-7.42) VBG pCO2 at Pat Temp (42-55) mm/Hg VBG pO2 at Pat Temp (25-40) mm/Hg VBG HCO3 (22-28) meq/L VBG O2 Sat (Anaid) (95-100) VBG Base Excess (-2.0-2.0) VBG Hemoglobin VBG Carboxyhemoglobin (0.0-6.9) % T HGB POC Potassium (3.5-5.1) Sodium (135-145) mmol/L Potassium (3.5-5.1) mmol/L Chloride (98-107) mmol/L Carbon Dioxide (22-30) mmol/L Anion Gap (5-15) MEQ/L BUN (7-17) mg/dL Creatinine (0.52-1.04) mg/dL Estimated GFR ML/MIN Glucose (74-106) mg/dL Hemoglobin A1c (4.5-6.0) % Lactic Acid (0.4-2.0) Calcium (8.4-10.2) mg/dL Magnesium (1.6-2.3) mg/dL Total Bilirubin (0.2-1.3) mg/dL AST (14-36) U/L ALT (0-35) U/L Alkaline Phosphatase (38-126) U/L Ammonia (9-30) umol/L Serum Total Protein (6.3-8.2) g/dL Albumin (3.5-5.0) g/dL Triglycerides 202 H (30-150) mg/dL Cholesterol 173 (50-200) mg/dL LDL Cholesterol 77 (30-100) mg/dL HDL Cholesterol 57 (40-60) mg/dL Heart Disease Risk Ratio 3.0 Free T4 (0.78-2.19) ng/dL TSH 3rd Generation (0.470-4.680) mIU/L Urine Color (Yellow) Urine Appearance (Clear) Urine pH (4.6-8.0) Ur Specific Weir (1.005-1.030) Urine Protein (Negative) Urine Glucose (UA) (Negative) mg/dL Urine Ketones (Negative) Urine Blood (Negative) Urine Nitrite (Negative) Urine Bilirubin (Negative) Urine Urobilinogen (0.2) mg/dL Ur Leukocyte Esterase (Negative) U Hyaline Cast (Auto) (0-2) /LPF Urine Microscopic RBC (0-5) /HPF Urine Microscopic WBC (0-5) /HPF Ur Epithelial Cells (None Seen) /HPF Urine Bacteria (None Seen) /HPF Urine Culture Reflexed (NO) - Radiology Impressions Radiology Exams & Impressions: Radiology Procedures Category Date Time Status HEAD WITHOUT CONTRAST [CT] Stat Exams 04/16/25 15:06 Completed MRI BRAIN W/O CONTRAST [MRI] Routine Exams 04/17/25 08:00 Ordered MRI BRAIN W/O CONTRAST [MRI] Routine Exams 04/17/25 08:00 Stop Req Assessment/Plan (1) TIA (transient ischemic attack) Current Visit: Yes Status: Acute Assessment & Plan: - Neurology consulted - CBC, CMP reviewed - MRI in AM - CTA- pending - CT head: Impression: Stable nonacute senile brain - Tele - Neuro checks Q4 - A1C - Lipid panel reviewed - ASA, Plavix - TSH WNL - High dose statin started. Code(s): G45.9 - TRANSIENT CEREBRAL ISCHEMIC ATTACK, UNSPECIFIED (2) Type II diabetes mellitus Current Visit: Yes Status: Acute Assessment & Plan: - A1C 6.30- controlled - Not taking meds for this currently. (3) History of atrial fibrillation Current Visit: Yes Status: Chronic Assessment & Plan: - tele - Not on anticoagulation nursing home Code(s): Z86.79 - PERSONAL HISTORY OF OTHER DISEASES OF THE CIRCULATORY SYSTEM (4) Depression with anxiety Current Visit: Yes Status: Chronic Assessment & Plan: - Continue home meds Code(s): F41.8 - OTHER SPECIFIED ANXIETY DISORDERS (5) Morbid obesity with BMI of 40.0-44.9, adult Current Visit: Yes Status: Chronic Assessment & Plan: - Advised diet and exercise control Plan of care admission time > 42 minutes D/C plan: tomorrow Code status: Full Next of KIN: Friend Ana Kurtz Code(s): E66.01 - MORBID (SEVERE) OBESITY DUE TO EXCESS CALORIES; Z68.41 - BODY MASS INDEX [BMI] 40.0-44.9, ADULT Telemedicine Encounter - Telemedicine Encounter Telemedicine Encounter: "The entirety of this encounter was performed via Telemedicine" This visit was performed using real-time audio and video connection between my location and thepatients locationwith the assistance of a surrogateat the patients location. Written or verbal consent was obtained from the patient/guardian to perform this [facility]. Any patient questions regarding the telemedicine interaction were answered.
[2025-04-16] MEDS: KLONOPIN PO SCH (22:00)
[2025-04-16] MEDS: zyPREXA 5MG TABLET PO SCH ×2 (22:01)
[2025-04-17 04:53] LABS: Hematocrit 38.7 % (34.1-44.9); Hemoglobin 11.8 g/dL (11.2-15.7); Mean Corpuscular Hemoglobin 28.9 pg (25.6-32.2); Mean Corpuscular Hgb Concent. 30.5 g/dL (32.2-35.5); Platelet Count 198 x10^3/uL (182-369); Red Blood Count 4.08 x10^6/uL (3.93-5.22); White Blood Count 6.6 x10^3/uL (3.98-10.04)
[2025-04-17 05:02] LABS: Calcium 8.6 mg/dL (8.4-10.2); Carbon Dioxide 26.0 mmol/L (22-30); Creatinine 1 0.45 mg/dL (0.52-1.04); EST GLOMERULAR FILTRATION RATE 100.9 ML/MIN; Glucose 116.0 mg/dL (74-106); Potassium 3.8 mmol/L (3.5-5.1); SGOT/AST 27.0 U/L (14-36); SGPT/ALT 16.0 U/L (0-35); Total Protein 5.9 g/dL (6.3-8.2)
[2025-04-17 08:27] VITALS: RESP 20
--- NOTE | 2025-04-17 08:57 | PCM.DS ---
Discharge Summary Date of Admission: 04/16/25 17:26 Date of Discharge: 04/17/25 Admitting Physician: JYOTI CARRINGTON MD Consults: Consults on Case 04/16/25 17:36 Consult Neurology ROUTINE Primary Care Provider: VERONIQUE,MARILUZ Allergies Allergies alprazolam [From Xanax] Allergy (Verified 04/16/25 15:01) meperidine [From Demerol] Allergy (Verified 04/16/25 15:01) Rash shellfish derived Allergy (Verified 04/16/25 15:01) Difficulty Breathing Hospital Summary - Hospital Course Hospital Course: 04/16/25 is a 74-year-old female with a past medical history significant for atrial fibrillation, pacemaker, prior stroke, hypertension, obesity, type II diabetes mellitus, fibromyalgia, osteoarthritis, anxiety, and depression presented to the emergency department with a general feeling of being unwell. She denied any focal weakness, numbness, tingling, dysphagia, chest pain, shortness of breath, or abdominal pain. Friends accompanying the patient reported a possible left-sided facial droop earlier in the day, which has since resolved. The patient has a known history of cerebrovascular accidents but without residual deficits. On evaluation, she appeared at her neurological baseline with resolution of symptoms. Vital signs were stable, and physical examination revealed no acute deficits. Neurology was consulted for further evaluation and recommendations. 04/17/25 The patient was observed sitting up in a chair this morning, eating breakfast. She remains asymptomatic following her transient ischemic attack (TIA) yesterday and denies any new symptoms or concerns at this time. She was pending MRI and MRA of the brain,but she has a pacemaker and this cannot be completed. Echocardiogram pending. Per neurology recommendations, she was started on aspirin, Plavix, and atorvastatin yesterday. After echo completed she will be appropriate for discharge later today. - Vitals & Intake/Output Vital Signs: Vital Signs Temperature 97.6 F 04/17/25 08:00 Pulse Rate 74 04/17/25 08:00 Respiratory Rate 20 04/17/25 08:00 Blood Pressure 160/70 04/17/25 08:00 O2 Sat by Pulse Oximetry 97 04/17/25 08:00 Intake & Output: Intake & Output 10/04/25 10/05/25 10/06/25 10/07/25 11:59 11:59 11:59 11:59 Intake Total 480 Balance 480 Weight 102 kg - Lab Result Diagrams: 04/17/25 04:20 04/17/25 04:20 Lab Results-Last 24 Hrs: Lab Results-Last 24 Hours 04/16/25 04/16/25 04/16/25 Range/Units 15:06 15:06 15:06 WBC (3.98-10.04) x10^3/uL RBC (3.93-5.22) x10^6/uL Hgb (11.2-15.7) g/dL Hct (34.1-44.9) % MCV (79.4-94.8) fL MCH (25.6-32.2) pg MCHC (32.2-35.5) g/dL RDW (11.7-14.4) % Plt Count (182-369) x10^3/uL MPV (9.4-12.3) fL Gran % (34.0-71.1) % Immature Gran % (Auto) (0.001-0.429) % Nucleat RBC Rel Count (0.00-0.2) % Eos # (Auto) (0.04-0.36) x10^3/uL Immature Gran # (Auto) (0.001-0.031) x10^3u/L Absolute Lymphs (auto) (1.18-3.74) x10^3/uL Absolute Monos (auto) (0.24-0.86) x10^3/uL Absolute Nucleated RBC (0.00-0.012) x10^3u/L Lymphocytes % (19.3-51.7) % Monocytes % (4.7-12.5) % Eosinophils % (0.7-5.8) % Basophils % (0.1-1.2) % Absolute Granulocytes (1.56-6.13) x10^3/uL Basophils # (0.01-0.08) x10^3/uL PT (9.4-12.5) SECONDS INR (0.8-3.0) APTT (25.1-36.5) SECONDS pO2/FiO2 Ratio 21.0 % VBG pH 7.44 H (7.32-7.42) VBG pCO2 at Pat Temp 56 H (42-55) mm/Hg VBG pO2 at Pat Temp 33 (25-40) mm/Hg VBG HCO3 38.0 H* (22-28) meq/L VBG O2 Sat (Anaid) 51.3 L (95-100) VBG Base Excess 11.6 H (-2.0-2.0) VBG Hemoglobin 13.5 VBG Carboxyhemoglobin 2.5 (0.0-6.9) % T HGB POC Potassium 4.6 (3.5-5.1) Sodium (135-145) mmol/L Potassium (3.5-5.1) mmol/L Chloride (98-107) mmol/L Carbon Dioxide (22-30) mmol/L Anion Gap (5-15) MEQ/L BUN (7-17) mg/dL Creatinine (0.52-1.04) mg/dL Estimated GFR ML/MIN Glucose (74-106) mg/dL Hemoglobin A1c (4.5-6.0) % Lactic Acid 1.3 (0.4-2.0) Calcium (8.4-10.2) mg/dL Magnesium (1.6-2.3) mg/dL Total Bilirubin (0.2-1.3) mg/dL AST (14-36) U/L ALT (0-35) U/L Alkaline Phosphatase (38-126) U/L Ammonia (9-30) umol/L Serum Total Protein (6.3-8.2) g/dL Albumin (3.5-5.0) g/dL Triglycerides (30-150) mg/dL Cholesterol (50-200) mg/dL LDL Cholesterol (30-100) mg/dL HDL Cholesterol (40-60) mg/dL Heart Disease Risk Ratio Free T4 (0.78-2.19) ng/dL TSH 3rd Generation (0.470-4.680) mIU/L Urine Color Yellow (Yellow) Urine Appearance Clear (Clear) Urine pH 7.0 (4.6-8.0) Ur Specific [place] 1.010 (1.005-1.030) Urine Protein Negative (Negative) Urine Glucose (UA) Negative (Negative) mg/dL Urine Ketones Negative (Negative) Urine Blood Negative (Negative) Urine Nitrite Negative (Negative) Urine Bilirubin Negative (Negative) Urine Urobilinogen 0.2 (0.2) mg/dL Ur Leukocyte Esterase Trace A (Negative) U Hyaline Cast (Auto) NONE SEEN (0-2) /LPF Urine Microscopic RBC 0-2 (0-5) /HPF Urine Microscopic WBC 0-2 (0-5) /HPF Ur Epithelial Cells None Seen (None Seen) /HPF Urine Bacteria None Seen (None Seen) /HPF Urine Culture Reflexed NO (NO) 04/16/25 04/16/25 04/16/25 Range/Units 15:50 15:50 15:50 WBC 5.5 (3.98-10.04) x10^3/uL RBC 4.51 (3.93-5.22) x10^6/uL Hgb 13.1 (11.2-15.7) g/dL Hct 41.7 (34.1-44.9) % MCV 92.5 (79.4-94.8) fL MCH 29.0 (25.6-32.2) pg MCHC 31.4 L (32.2-35.5) g/dL RDW 12.8 (11.7-14.4) % Plt Count 226 (182-369) x10^3/uL MPV 11.0 (9.4-12.3) fL Gran % 53.9 (34.0-71.1) % Immature Gran % (Auto) 0.5 H (0.001-0.429) % Nucleat RBC Rel Count 0.0 (0.00-0.2) % Eos # (Auto) 0.17 (0.04-0.36) x10^3/uL Immature Gran # (Auto) 0.03 (0.001-0.031) x10^3u/L Absolute Lymphs (auto) 1.80 (1.18-3.74) x10^3/uL Absolute Monos (auto) 0.48 (0.24-0.86) x10^3/uL Absolute Nucleated RBC 0.00 (0.00-0.012) x10^3u/L Lymphocytes % 33.0 (19.3-51.7) % Monocytes % 8.8 (4.7-12.5) % Eosinophils % 3.1 (0.7-5.8) % Basophils % 0.7 (0.1-1.2) % Absolute Granulocytes 2.94 (1.56-6.13) x10^3/uL Basophils # 0.04 (0.01-0.08) x10^3/uL PT 10.3 (9.4-12.5) SECONDS INR 0.92 (0.8-3.0) APTT 24.0 L (25.1-36.5) SECONDS pO2/FiO2 Ratio % VBG pH (7.32-7.42) VBG pCO2 at Pat Temp (42-55) mm/Hg VBG pO2 at Pat Temp (25-40) mm/Hg VBG HCO3 (22-28) meq/L VBG O2 Sat (Anaid) (95-100) VBG Base Excess (-2.0-2.0) VBG Hemoglobin VBG Carboxyhemoglobin (0.0-6.9) % T HGB POC Potassium (3.5-5.1) Sodium 138 (135-145) mmol/L Potassium 4.5 (3.5-5.1) mmol/L Chloride 101 (98-107) mmol/L Carbon Dioxide 31 H (22-30) mmol/L Anion Gap 9.8 (5-15) MEQ/L BUN 9 (7-17) mg/dL Creatinine 0.51 L (0.52-1.04) mg/dL Estimated GFR 97.9 ML/MIN Glucose 107 H (74-106) mg/dL Hemoglobin A1c (4.5-6.0) % Lactic Acid (0.4-2.0) Calcium 9.1 (8.4-10.2) mg/dL Magnesium 1.8 (1.6-2.3) mg/dL Total Bilirubin 0.20 (0.2-1.3) mg/dL AST 27 (14-36) U/L ALT 17 (0-35) U/L Alkaline Phosphatase 85 (38-126) U/L Ammonia (9-30) umol/L Serum Total Protein 6.6 (6.3-8.2) g/dL Albumin 4.0 (3.5-5.0) g/dL Triglycerides (30-150) mg/dL Cholesterol (50-200) mg/dL LDL Cholesterol (30-100) mg/dL HDL Cholesterol (40-60) mg/dL Heart Disease Risk Ratio Free T4 (0.78-2.19) ng/dL TSH 3rd Generation 0.901 (0.470-4.680) mIU/L Urine Color (Yellow) Urine Appearance (Clear) Urine pH (4.6-8.0) Ur Specific [place] (1.005-1.030) Urine Protein (Negative) Urine Glucose (UA) (Negative) mg/dL Urine Ketones (Negative) Urine Blood (Negative) Urine Nitrite (Negative) Urine Bilirubin (Negative) Urine Urobilinogen (0.2) mg/dL Ur Leukocyte Esterase (Negative) U Hyaline Cast (Auto) (0-2) /LPF Urine Microscopic RBC (0-5) /HPF Urine Microscopic WBC (0-5) /HPF Ur Epithelial Cells (None Seen) /HPF Urine Bacteria (None Seen) /HPF Urine Culture Reflexed (NO) 04/16/25 04/16/25 04/16/25 Range/Units 15:50 15:50 15:50 WBC (3.98-10.04) x10^3/uL RBC (3.93-5.22) x10^6/uL Hgb (11.2-15.7) g/dL Hct (34.1-44.9) % MCV (79.4-94.8) fL MCH (25.6-32.2) pg MCHC (32.2-35.5) g/dL RDW (11.7-14.4) % Plt Count (182-369) x10^3/uL MPV (9.4-12.3) fL Gran % (34.0-71.1) % Immature Gran % (Auto) (0.001-0.429) % Nucleat RBC Rel Count (0.00-0.2) % Eos # (Auto) (0.04-0.36) x10^3/uL Immature Gran # (Auto) (0.001-0.031) x10^3u/L Absolute Lymphs (auto) (1.18-3.74) x10^3/uL Absolute Monos (auto) (0.24-0.86) x10^3/uL Absolute Nucleated RBC (0.00-0.012) x10^3u/L Lymphocytes % (19.3-51.7) % Monocytes % (4.7-12.5) % Eosinophils % (0.7-5.8) % Basophils % (0.1-1.2) % Absolute Granulocytes (1.56-6.13) x10^3/uL Basophils # (0.01-0.08) x10^3/uL PT (9.4-12.5) SECONDS INR (0.8-3.0) APTT (25.1-36.5) SECONDS pO2/FiO2 Ratio % VBG pH (7.32-7.42) VBG pCO2 at Pat Temp (42-55) mm/Hg VBG pO2 at Pat Temp (25-40) mm/Hg VBG HCO3 (22-28) meq/L VBG O2 Sat (Anaid) (95-100) VBG Base Excess (-2.0-2.0) VBG Hemoglobin VBG Carboxyhemoglobin (0.0-6.9) % T HGB POC Potassium (3.5-5.1) Sodium (135-145) mmol/L Potassium (3.5-5.1) mmol/L Chloride (98-107) mmol/L Carbon Dioxide (22-30) mmol/L Anion Gap (5-15) MEQ/L BUN (7-17) mg/dL Creatinine (0.52-1.04) mg/dL Estimated GFR ML/MIN Glucose (74-106) mg/dL Hemoglobin A1c 6.30 H (4.5-6.0) % Lactic Acid (0.4-2.0) Calcium (8.4-10.2) mg/dL Magnesium (1.6-2.3) mg/dL Total Bilirubin (0.2-1.3) mg/dL AST (14-36) U/L ALT (0-35) U/L Alkaline Phosphatase (38-126) U/L Ammonia < 9 L (9-30) umol/L Serum Total Protein (6.3-8.2) g/dL Albumin (3.5-5.0) g/dL Triglycerides (30-150) mg/dL Cholesterol (50-200) mg/dL LDL Cholesterol (30-100) mg/dL HDL Cholesterol (40-60) mg/dL Heart Disease Risk Ratio Free T4 1.01 (0.78-2.19) ng/dL TSH 3rd Generation (0.470-4.680) mIU/L Urine Color (Yellow) Urine Appearance (Clear) Urine pH (4.6-8.0) Ur Specific [place] (1.005-1.030) Urine Protein (Negative) Urine Glucose (UA) (Negative) mg/dL Urine Ketones (Negative) Urine Blood (Negative) Urine Nitrite (Negative) Urine Bilirubin (Negative) Urine Urobilinogen (0.2) mg/dL Ur Leukocyte Esterase (Negative) U Hyaline Cast (Auto) (0-2) /LPF Urine Microscopic RBC (0-5) /HPF Urine Microscopic WBC (0-5) /HPF Ur Epithelial Cells (None Seen) /HPF Urine Bacteria (None Seen) /HPF Urine Culture Reflexed (NO) 04/16/25 04/17/25 04/17/25 Range/Units 17:47 04:20 04:20 WBC 6.6 (3.98-10.04) x10^3/uL RBC 4.08 (3.93-5.22) x10^6/uL Hgb 11.8 (11.2-15.7) g/dL Hct 38.7 (34.1-44.9) % MCV 94.9 H (79.4-94.8) fL MCH 28.9 (25.6-32.2) pg MCHC 30.5 L (32.2-35.5) g/dL RDW 12.9 (11.7-14.4) % Plt Count 198 (182-369) x10^3/uL MPV 11.4 (9.4-12.3) fL Gran % (34.0-71.1) % Immature Gran % (Auto) (0.001-0.429) % Nucleat RBC Rel Count (0.00-0.2) % Eos # (Auto) (0.04-0.36) x10^3/uL Immature Gran # (Auto) (0.001-0.031) x10^3u/L Absolute Lymphs (auto) (1.18-3.74) x10^3/uL Absolute Monos (auto) (0.24-0.86) x10^3/uL Absolute Nucleated RBC (0.00-0.012) x10^3u/L Lymphocytes % (19.3-51.7) % Monocytes % (4.7-12.5) % Eosinophils % (0.7-5.8) % Basophils % (0.1-1.2) % Absolute Granulocytes (1.56-6.13) x10^3/uL Basophils # (0.01-0.08) x10^3/uL PT (9.4-12.5) SECONDS INR (0.8-3.0) APTT (25.1-36.5) SECONDS pO2/FiO2 Ratio % VBG pH (7.32-7.42) VBG pCO2 at Pat Temp (42-55) mm/Hg VBG pO2 at Pat Temp (25-40) mm/Hg VBG HCO3 (22-28) meq/L VBG O2 Sat (Anaid) (95-100) VBG Base Excess (-2.0-2.0) VBG Hemoglobin VBG Carboxyhemoglobin (0.0-6.9) % T HGB POC Potassium (3.5-5.1) Sodium 134 L (135-145) mmol/L Potassium 3.8 (3.5-5.1) mmol/L Chloride 104 (98-107) mmol/L Carbon Dioxide 26 (22-30) mmol/L Anion Gap 8.2 (5-15) MEQ/L BUN 11 (7-17) mg/dL Creatinine 0.45 L (0.52-1.04) mg/dL Estimated GFR 100.9 ML/MIN Glucose 116 H (74-106) mg/dL Hemoglobin A1c (4.5-6.0) % Lactic Acid (0.4-2.0) Calcium 8.6 (8.4-10.2) mg/dL Magnesium (1.6-2.3) mg/dL Total Bilirubin 0.20 (0.2-1.3) mg/dL AST 27 (14-36) U/L ALT 16 (0-35) U/L Alkaline Phosphatase 75 (38-126) U/L Ammonia (9-30) umol/L Serum Total Protein 5.9 L (6.3-8.2) g/dL Albumin 3.5 (3.5-5.0) g/dL Triglycerides 202 H (30-150) mg/dL Cholesterol 173 (50-200) mg/dL LDL Cholesterol 77 (30-100) mg/dL HDL Cholesterol 57 (40-60) mg/dL Heart Disease Risk Ratio 3.0 Free T4 (0.78-2.19) ng/dL TSH 3rd Generation (0.470-4.680) mIU/L Urine Color (Yellow) Urine Appearance (Clear) Urine pH (4.6-8.0) Ur Specific [place] (1.005-1.030) Urine Protein (Negative) Urine Glucose (UA) (Negative) mg/dL Urine Ketones (Negative) Urine Blood (Negative) Urine Nitrite (Negative) Urine Bilirubin (Negative) Urine Urobilinogen (0.2) mg/dL Ur Leukocyte Esterase (Negative) U Hyaline Cast (Auto) (0-2) /LPF Urine Microscopic RBC (0-5) /HPF Urine Microscopic WBC (0-5) /HPF Ur Epithelial Cells (None Seen) /HPF Urine Bacteria (None Seen) /HPF Urine Culture Reflexed (NO) - Radiology Exams Ordered Rad Exams-Entire Visit: Radiology Procedures Category Date Time Status ECHO W/2D AND DOPPLER [US] Routine Exams 04/17/25 08:00 Ordered HEAD WITHOUT CONTRAST [CT] Stat Exams 04/16/25 15:06 Completed MRA BRAIN WITHOUT CONTRAST [MRI] Routine Exams 04/17/25 07:37 Ordered MRI BRAIN W/O CONTRAST [MRI] Routine Exams 04/17/25 08:00 Ordered - Procedures and Test Procedures and Tests throughout Hospitalization: Therapy Orders & Screens 04/16/25 17:40 OT Eval and Treat ( Order) ONCE Comment: Physician Instructions: Reason For Exam: Evaluate: Yes Treat: Yes Reason for Evaluation: TIA Diagnosis: TIA 04/16/25 18:49 ST Screen per Nursing Assess ONCE Comment: Protocol Order Physician Instructions: Greater than [address] Admission Screening Reason For Exam: Triggered on Admission Diagnosis: TIA CVA/Dysphagia/Aphasia: Yes Cognitive Deficits: No Dehydration/Nutrition Deficit: No Reflux: No Oral-Motor Difficulties: No Pneumonia: No Long Term Resident: No Total Points: 5 04/17/25 07:38 PT Eval & Treat ( Order) ONCE Reason for Eval:: TIA Diagnosis: TIA Discharge Exam General Appearance: no apparent distress, alert, obese Neurologic Exam: alert, oriented x 3, cooperative, normal mood/affect, nml cerebellar function, sensation nml, No motor deficits Eye Exam: PERRL, EOMI, eyes nml inspection Ears, Nose, Throat Exam: normal ENT inspection, pharynx normal, moist mucous membranes Neck Exam: normal inspection, non-tender, supple, full range of motion Respiratory Exam: normal breath sounds, lungs clear, No respiratory distress Cardiovascular Exam: regular rate/rhythm, normal heart sounds Gastrointestinal/Abdomen Exam: soft, No tenderness, No mass Pelvic Exam: deferred Rectal Exam: deferred Back Exam: normal inspection, normal range of motion, No CVA tenderness, No vertebral tenderness Extremity Exam: normal inspection, normal range of motion Skin Exam: normal color, warm, dry Final Diagnosis/Problem List - Final Discharge Diagnosis/Problem (1) TIA (transient ischemic attack) Current Visit: Yes Status: Acute Code(s): G45.9 - TRANSIENT CEREBRAL ISCHEMIC ATTACK, UNSPECIFIED (2) Type II diabetes mellitus Current Visit: Yes Status: Acute (3) History of atrial fibrillation Current Visit: Yes Status: Chronic Code(s): Z86.79 - PERSONAL HISTORY OF OTHER DISEASES OF THE CIRCULATORY SYSTEM (4) Depression with anxiety Current Visit: Yes Status: Chronic Code(s): F41.8 - OTHER SPECIFIED ANXIETY DISORDERS (5) Morbid obesity with BMI of 40.0-44.9, adult Current Visit: Yes Status: Chronic Assessment & Plan: (1) TIA (transient ischemic attack) Current Visit: Yes Status: Acute Assessment & Plan: - Neurology consulted - CBC, CMP reviewed - MRI in AM - CTA- pending - CT head: Impression: Stable nonacute senile brain - Tele - Neuro checks Q4 - A1C 6.30 - Lipid panel reviewed - ASA, Plavix x 21 days then stop plavix - TSH WNL - High dose statin started 04/17 - MRA, MRI- cancelled as she has a pacemaker - ECHO pending results- f/u with PCP for findings - F/U OP with PCP Code(s): G45.9 - TRANSIENT CEREBRAL ISCHEMIC ATTACK, UNSPECIFIED (2) Type II diabetes mellitus Current Visit: Yes Status: Acute Assessment & Plan: - A1C 6.30- controlled - Not taking meds for this currently. 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 Code(s): Z86.79 - PERSONAL HISTORY OF OTHER DISEASES OF THE CIRCULATORY SYSTEM (4) Depression with anxiety Current Visit: Yes Status: Chronic Assessment & Plan: - Continue home meds Code(s): F41.8 - OTHER SPECIFIED ANXIETY DISORDERS (5) Morbid obesity with BMI of 40.0-44.9, adult Current Visit: Yes Status: Chronic Assessment & Plan: - Advised diet and exercise control Code(s): E66.01 - MORBID (SEVERE) OBESITY DUE TO EXCESS CALORIES; Z68.41 - BODY MASS INDEX [BMI] 40.0-44.9, ADULT (6) Hypertriglyceridemia Current Visit: Yes Status: Acute Assessment & Plan: - Triglycerides 202 - High dose statin started D/C plan of care time > 45 minutes New meds at d/c: ASA, Plavix, atorvastatin Code(s): E78.1 - PURE HYPERGLYCERIDEMIA - Discharge Discharge Date: 04/17/25 Disposition: Home, Self-Care Condition: Stable Prescriptions: New Aspirin EC 81 mg [Ecotrin 81 mg] 81 mg PO DAILY 30 Days #30 tablet Atorvastatin Calcium [Lipitor 40Mg] 80 mg PO DAILY 30 Days #30 tablet Clopidogrel Bisulfate [Plavix] 75 mg PO DAILY 21 Days #21 tablet Continue Metoprolol Tartrate 25 mg [Lopressor 25MG Tab] 25 mg PO DAILY Olanzapine 5 mg [zyPREXA 5MG TABLET] 7.5 mg PO HS Lisinopril 20 mg [Zestril 20 MG] 20 mg PO DAILY Olanzapine 5 mg [zyPREXA 5MG TABLET] 5 mg PO HS buPROPion HCL [Bupropion Xl] 300 mg PO QAM Clonazepam [Klonopin] 1 mg PO BID Venlafaxine HCl ER 75 mg [Effexor XR 75 MG] 225 mg PO DAILY Instructions: Transient ischemic attack, High triglycerides Additional Instructions: IF INTERESTED IN [employer]ING [employer], YOU CAN CALL THEM AT [phone] IF YOU HAVE TROUBLE AFFORDING MEDS, GROCERIES AND TROUBLE WITH TRANSPORTATION- YOU CAN REACH OUT TO OUR ACO DEPARTMENT AT [phone] Follow up with: MARILUZ PIPER MD [Primary Care Provider, INTERNAL MEDICINE] - 04/26/25 2:15 pm
[2025-04-17] MEDS: Effexor XR 75 MG PO SCH (09:03)
[2025-04-17] MEDS: Wellbutrin XL 150 MG PO SCH (09:03)
[2025-04-17] MEDS: PLAVIX Tablet PO SCH (09:03)
[2025-04-17] MEDS: Zestril 20 MG PO SCH (09:03)
[2025-04-17] MEDS: Lopressor 25MG Tab PO SCH (09:03)
[2025-04-17] MEDS: LIPITOR 40MG PO SCH (09:03)
[2025-04-17] MEDS: ECOTRIN 81 MG PO SCH (09:03)
[2025-04-17] MEDS: TYLENOL 325 MG PO PRN (09:04)
[2025-04-17 16:40] VITALS: BP 130/61; PULSE 61; TEMP 97.9; O2SAT 96
[2025-04-17] MEDS ORDERED: zyPREXA 5MG TABLET PO SCH (22:00)
== END 2025-04-17 16:49 | disposition home or self-care (01) ==
LOC: ED 14:56 → MED SURG 17:26
PROVIDERS: ADMIT Internal Medicine; ATTEND Internal Medicine
DX: G45.9 Transient cerebral ischemic attack, unspecified (principal); E11.9 Type 2 diabetes mellitus without complications; I10 Essential (primary) hypertension; Z86.79 Personal history of other diseases of the circulatory system; F41.8 Other specified anxiety disorders; E66.01 Morbid (severe) obesity due to excess calories; Z68.41 Body mass index [BMI] 40.0-44.9, adult; E78.1 Pure hyperglyceridemia; Z79.899 Other long term (current) drug therapy; Z85.3 Personal history of malignant neoplasm of breast